=== PATIENT | female | born 1940 | race Caucasian/White ===

== ENCOUNTER 2023-08-02 02:51 | Inpatient (IN) | payer MEDICAID, MEDICARE ==
[~2023-08-02] VITALS: Ht 160 cm; Wt 80.0 kg
[~2023-08-02 02:51] MED LIST: ACHD5005 PO; ASP81CT PO; ASPI-1238 PO; CLCX200C PO; CLOP75TA PO; FLC150T PO; FRSM40T PO; HC A28.3 PR; HYDR-3583 PO; IBUP-30 PO; LISI2.5T56 PO; LISI5TAB PO; METO-333 PO; METO25TA PO; METO50TA7 PO; MTP50T PO; NITR0.3T6 SL; NYST1000 PO; OMEP20CA18 PO; ONDA8TAB13 PO; ONDA8TAB9 PO; POTA20TA15 PO; RNT150T PO; SIMV40TA2 PO; SIMV80TA3 PO; SUCR1ORA5 PO; WHEA1POW PO
[2023-08-02] MEDS ORDERED: fentaNYL INJECTION 100 MCG/2 ML VIAL IV ONE (02:54)
[2023-08-02] MEDS ORDERED: MIDAZOLAM INJ 5 MG/5 ML VIAL IJ ONE (02:54)
[2023-08-02] MEDS ORDERED: ETOMIDATE INJ SOLN 20 MG/10 ML VIAL IV ONE (02:54)
[2023-08-02] MEDS ORDERED: SUCCINYLCHOLINE INJ 20 MG/1 ML 10 ML VIAL INJ ONE (02:54)
--- NOTE | 2023-08-02 02:59 | ED Fall/Injury ---
General Stated Complaint: RECENT FALL,RT LEG SWELLING Source: patient (CJ RAYMOND MD) History of Present Illness Date Seen by Provider: Aug 02, 2023 Time Seen by Provider: 02:59 Initial Comments Patient is an 83yo female brought in by EMS from home with complaint of pain in right lg, hip, right arm. weakness. She is very dry, difficult to understand. Covered in bruises and with profound LE edema bilaterally with hemmorhagic bullae to right foot. erythema to right anterior lower leg. 3+ edema to bilateral legs. tachycardia. Initially hypotensive per EMS in the 70's - 90's here on arrival. Rdmg-rt-vylcjh O2 saturations - dusky fingers and feet. Ostomy present - leaking brown stool. HPI and ROS very difficult to obtain from patient as her oral mucosa is so dry she is very difficult to understand. Her biggest complaint is pain in her RLE. Occurred: last week Severity: severe Injuries/Pain Location: upper extremity, lower extremity Context: unknown (CJ RAYMOND MD) Allergies and Home Medications Allergies Coded Allergies: propoxyphene HCl (Unverified Allergy, Unknown, 03/30/11) Patient Home Medication List Home Medication List Reviewed: Yes (CJ RAYMOND MD) Aspirin (Aspirin EC) 81 Mg Tablet.dr, 81 MG PO HS, (Reported) Entered as Reported by: MONTSE ZHU on 02/11/16 1315 Hydrocodone Bit/Acetaminophen (Lortab 5 Mg Tablet) 1 Each Tablet, 1 EACH PO Q6H PRN for PAIN, (Reported) Entered as Reported by: HIEU RANGEL on 07/13/16 1517 Metoprolol Succinate (Metoprolol Succinate) 50 Mg Tab.er.24h, 50 MG PO DAILY, (Reported) Entered as Reported by: MONTSE ZHU on 02/11/16 1302 Omeprazole (Omeprazole) 20 Mg Capsule.dr, 20 MG PO BID, (Reported) Entered as Reported by: MONTSE ZHU on 02/11/16 1315 Ondansetron (Zofran Odt) 8 Mg Tab.rapdis, 8 MG PO Q8H PRN for NAUSEA/VOMITING, (Reported) Entered as Reported by: HIEU RANGEL on 07/13/16 1517 Review of Systems Review of Systems Constitutional: see HPI Musculoskeletal: joint pain, joint swelling, muscle pain (CJ RAYMOND MD) Past Phgkswr-Ikwggt-Criooj Hx Seasonal Allergies Seasonal Allergies: No (CJ RAYMOND MD) Past Medical History Bladder Surgery, Section, Hysterectomy, Tonsillectomy Hypertension Reproductive Disorders: No Female Reproductive Disorders: 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, 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 Sexually Transmitted Disease: No HIV/AIDS: No Kidney Infection, Bladder Infection, UTI-Chronic Hemorrhoids, C-Diff Osteoporosis, Arthritis Loss of Vision: Denies Hearing Impairment: Denies, Hard of Hearing (CJ RAYMOND MD) Family Medical History Arthritis 19 MOTHER G8 SISTER Cardiovascular disease 19 FATHER 19 MOTHER G8 BROTHER (ENLARGED HEART, PASSED 48 YOUNGER BROTHER HEART MURMUR) Diabetes mellitus 19 MOTHER G8 SISTER Hypertension 19 FATHER 19 MOTHER Myocardial infarction Heart Disease, Hypertension (CJ RAYMOND MD) Physical Exam Vital Signs Vital Signs - First Documented 08/02/23 08/02/23 02:51 06:49 Temp 36.0 Pulse 126 Resp 18 B/P (MAP) 91/62 (72) Pulse Ox 87 O2 Delivery Nasal Cannula O2 Flow Rate 4.00 FiO2 100 (PIERCE COLLIER MD) Vital Signs Capillary Refill : (CJ RAYMOND MD) Height, Weight, BMI Height: 5'0.00" Weight: 136lbs. 0.0oz. [id number]; 26.6 BMI Method:Stated General Appearance: obese, other (appears chronically ill) HEENT: other (very dry oral mucosa) Cardiovascular: tachycardia, irregularly irregular Respiratory: no respiratory distress, other (diminished throughout) Gastrointestinal: tenderness (diffuse tenderness; ostomy right lower quadrant - brown stool noted) Extremities: swelling (massive edema BLE; hemmorhagic bullae/erythema to RLE; cyanosis both feet; RUE wound to index finger of right hand with erythema and swelling. tenderness to palpation right proximal forearm with erythema and swelling.) Neurologic/Psychiatric: alert Skin: pallor, other (weeping bullae to the RLE) (CJ RAYMOND MD) [place] Coma Score Best Eye Response: (4) Open Spontaneously Best Verbal Response: (5) Oriented Best Motor Response: (6) Obeys Commands (CJ RAYMOND MD) Procedures/Interventions Lumen: triple Central Line Procedure: betadine prep, sterile drapes applied, sterile dressing applied Position: internal jugular (R) Anesthesia: Lidocaine Volume Anesthetic (ccs): 3 Complications: none Post Position: sutured, good blood return, position confirmed w/ CXR Central line does appear deep on postprocedure chest x-ray, it is a 16 cm line, patient is rotated which may affect interpretation of positioning (CJ RAYMOND MD) Date of ETT Placement: Aug 02, 2023 Time of ETT Placement: 06:33 Intubation Method: orotracheal Tube Size: 7.5 Medications: Etomidate, Succinylcholine Positive End Tide CO2: Yes Breath Sounds after Intubation: bilateral-equal Intubation Complications: no complications Post Intubation Xray: Yes (PIERCE COLLIER MD) Progress/Results/Core Measures Results/Orders Lab Results Laboratory Tests Test 08/02/23 03:15 08/02/23 03:30 08/02/23 04:07 08/02/23 06:19 Range/Units White Blood Count 6.5 4.3-11.0 10^3/uL Red Blood Count 5.01 3.80-5.11 10^6/uL Hemoglobin 12.8 11.5-16.0 g/dL Hematocrit 42 35-52 % Mean Corpuscular Volume 83 80-99 fL Mean Corpuscular Hemoglobin 26 25-34 pg Mean Corpuscular Hemoglobin Concent 31 L 32-36 g/dL Red Cell Distribution Width 15.6 H 10.0-14.5 % Platelet Count 189 130-400 10^3/uL Mean Platelet Volume 12.3 H 9.0-12.2 fL Immature Granulocyte % (Auto) 0 % Neutrophils (%) (Auto) 92 H 42-75 % Lymphocytes (%) (Auto) 3 L 12-44 % Monocytes (%) (Auto) 3 0-12 % Eosinophils (%) (Auto) 1 0-10 % Basophils (%) (Auto) 1 0-10 % Neutrophils # (Auto) 6.0 1.8-7.8 10^3/uL Lymphocytes # (Auto) 0.2 L 1.0-4.0 10^3/uL Monocytes # (Auto) 0.2 0.0-1.0 10^3/uL Eosinophils # (Auto) 0.0 0.0-0.3 10^3/uL Basophils # (Auto) 0.1 0.0-0.1 10^3/uL Immature Granulocyte # (Auto) 0.0 0.0-0.1 10^3/uL Neutrophils % (Manual) 32 % Lymphocytes % (Manual) 7 % Monocytes % (Manual) 4 % Eosinophils % (Manual) 1 % Metamyelocytes % 18 % Myelocytes % 2 % Band Neutrophils 36 % Nucleated Red Blood Cells 1 Polychromasia SLIGHT Poikilocytosis SLIGHT Anisocytosis SLIGHT [place] Cells MARKED Elliptocytes SLIGHT Acanthocytes SLIGHT Prothrombin Time 16.2 H 12.2-14.7 SEC INR Comment 1.2 0.8-1.4 Activated Partial Thromboplast Time 40 H 24-35 SEC Sodium Level 122 *L 135-145 MMOL/L Potassium Level 6.0 H 3.6-5.0 MMOL/L Chloride Level 91 L 98-107 MMOL/L Carbon Dioxide Level 22 21-32 MMOL/L Anion Gap 9 5-14 MMOL/L Blood Urea Nitrogen 34 H 7-18 MG/DL Creatinine 2.32 H 0.60-1.30 MG/DL Estimat Glomerular Filtration Rate 20 BUN/Creatinine Ratio 15 Glucose Level 63 L 70-105 MG/DL Lactic Acid Level 1.77 0.50-2.00 MMOL/L Calcium Level 8.2 L 8.5-10.1 MG/DL Corrected Calcium 9.2 8.5-10.1 MG/DL Total Bilirubin 1.1 H 0.1-1.0 MG/DL Aspartate Amino Transf (AST/SGOT) 39 H 5-34 U/L Alanine Aminotransferase (ALT/SGPT) 23 0-55 U/L Alkaline Phosphatase 63 40-136 U/L Total Creatine Kinase 233 H 29-168 U/L Total Protein 5.5 L 6.4-8.2 GM/DL Albumin 2.7 L 3.2-4.5 GM/DL Urine Color ORANGE Urine Clarity CLEAR Urine pH 5.5 5-9 Urine Specific [place] 1.025 H 1.016-1.022 Urine Protein 3+ H NEGATIVE Urine Glucose (UA) NEGATIVE NEGATIVE Urine Ketones TRACE H NEGATIVE Urine Nitrite NEGATIVE NEGATIVE Urine Bilirubin 2+ H NEGATIVE Urine Urobilinogen 1.0 < = 1.0 MG/DL Urine Leukocyte Esterase NEGATIVE NEGATIVE Urine RBC (Auto) NEGATIVE NEGATIVE Urine RBC NONE /HPF Urine WBC 0-2 /HPF Urine Squamous Epithelial Cells 2-5 /HPF Urine Crystals PRESENT H /LPF Urine Amorphous Sediment LARGE LUIGI URATES H /LPF Urine Bacteria FEW H /HPF Urine Casts PRESENT /LPF Urine Hyaline Casts 2-5 H /LPF Urine Granular Casts 0-2 H /LPF Urine Mucus NEGATIVE /LPF Urine Culture Indicated CULTURE PENDING Arterial Blood pH 7.24 *L 7.37-7.43 Arterial Blood Partial Pressure CO2 48 H 35-45 MMHG Arterial Blood Partial Pressure O2 112 H 79-93 MMHG Arterial Blood HCO3 21 L 23-27 MMOL/L Arterial Blood Total CO2 22.1 21.0-31.0 MMOL/L Arterial Blood Oxygen Saturation 100 94-100 % Arterial Blood Base Excess -6.9 L -2.5-2.5 MMOL/L Blood Gas Ventilator Setting NO Blood Gas Inspired Oxygen 5L Glucometer 98 70-110 MG/DL Test 08/02/23 07:04 08/02/23 07:42 08/02/23 09:49 08/02/23 10:48 Range/Units Arterial Blood pH 7.27 *L 7.37-7.43 Arterial Blood Partial Pressure CO2 42 35-45 MMHG Arterial Blood Partial Pressure O2 125 H 79-93 MMHG Arterial Blood HCO3 19 L 23-27 MMOL/L Arterial Blood Total CO2 20.6 L 21.0-31.0 MMOL/L Arterial Blood Oxygen Saturation 99 94-100 % Arterial Blood Base Excess -7.3 L -2.5-2.5 MMOL/L Blood Gas Ventilator Setting Blood Gas Inspired Oxygen Sodium Level 125 *L 135-145 MMOL/L Potassium Level 4.9 3.6-5.0 MMOL/L Chloride Level 96 L 98-107 MMOL/L Carbon Dioxide Level 19 L 21-32 MMOL/L Anion Gap 10 5-14 MMOL/L Blood Urea Nitrogen 31 H 7-18 MG/DL Creatinine 2.08 H 0.60-1.30 MG/DL Estimat Glomerular Filtration Rate 23 BUN/Creatinine Ratio 15 Glucose Level 93 70-105 MG/DL Calcium Level 7.2 L 8.5-10.1 MG/DL Glucometer 75 67 L 70-110 MG/DL Test 08/02/23 11:30 08/02/23 11:55 Range/Units Arterial Blood pH 7.13 *L 7.37-7.43 Arterial Blood Partial Pressure CO2 59 H 35-45 MMHG Arterial Blood Partial Pressure O2 47 L 79-93 MMHG Arterial Blood HCO3 20 L 23-27 MMOL/L Arterial Blood Total CO2 21.4 21.0-31.0 MMOL/L Arterial Blood Oxygen Saturation 73 L 94-100 % Arterial Blood Base Excess -10.1 L -2.5-2.5 MMOL/L Blood Gas Ventilator Setting Blood Gas Inspired Oxygen Hemoglobin 12.4 11.5-16.0 g/dL Hematocrit 41 35-52 % Sodium Level 125 *L 135-145 MMOL/L Potassium Level 4.9 3.6-5.0 MMOL/L Chloride Level 97 L 98-107 MMOL/L Carbon Dioxide Level 18 L 21-32 MMOL/L Anion Gap 10 5-14 MMOL/L Blood Urea Nitrogen 32 H 7-18 MG/DL Creatinine 2.07 H 0.60-1.30 MG/DL Estimat Glomerular Filtration Rate 23 BUN/Creatinine Ratio 15 Glucose Level 155 H 70-105 MG/DL Calcium Level 6.9 L 8.5-10.1 MG/DL Troponin I 0.041 H <0.028 NG/ML Thyroid Stimulating Hormone (TSH) 4.45 0.35-4.94 UIU/ML (PIERCE COLLIER MD) My Orders Orders - PIERCE COLLIER MD Chest 1 View, Ap/Pa Only (08/02/23 ) Arterial Blood Draw - Obtain (08/02/23 07:05) Arterial Blood Gas (08/02/23 07:05) Arterial Blood Draw - Obtain (08/02/23 ) Fentanyl Drip Pre-Mix (Fentanyl Drip Pre (08/02/23 07:30) Midazolam Drip Pre-Mix (Midazolam Drip P (08/02/23 07:30) Basic Metabolic Panel (08/02/23 07:25) Midazolam Injection (Midazolam Injection (08/02/23 07:30) Fentanyl Injection (Fentanyl Injection (08/02/23 07:25) Midazolam Injection (Midazolam Injection (08/02/23 07:26) Fentanyl Injection (Fentanyl Injection (08/02/23 07:26) Consent-Obtain Consent For (08/02/23 06:30) Consent-Obtain Consent For (08/02/23 05:20) Og Tube Insertion (08/02/23 08:04) Midazolam Injection (Midazolam Injection (08/02/23 10:15) Fentanyl Injection (Fentanyl Injection (08/02/23 10:15) Ns Iv 1000 Ml (Ns Iv 1000 Ml) (08/02/23 10:15) Midazolam Injection (Midazolam Injection (08/02/23 10:03) Fentanyl Injection (Fentanyl Injection (08/02/23 10:03) Etomidate Injection (Etomidate Injection (08/02/23 02:54) Fentanyl Injection (Fentanyl Injection (08/02/23 02:54) Midazolam Injection (Midazolam Injection (08/02/23 02:54) Succinylcholine Injection (Succinylcholi (08/02/23 02:54) D5 Ns 1,000 Ml Iv Soln (Dextrose 5%/0.9 (08/02/23 11:00) D5 Ns 1,000 Ml Iv Soln (Dextrose 5%/0.9 (08/02/23 10:50) Vancomycin Injection (Vancomycin Injecti (08/02/23 11:15) Piperacillin/Tazobactam (Piperacillin/Ta (08/02/23 11:15) Vancomycin 1500mg/300ml Premix (Vancomyc (08/02/23 11:30) Arterial Blood Gas (08/02/23 11:33) Arterial Blood Draw - Obtain (08/02/23 11:33) Arterial Blood Draw - Obtain (08/02/23 ) Basic Metabolic Panel (08/02/23 11:53) Hemoglobin And Hematocrit (08/02/23 11:53) Code/Resuscitation (08/02/23 12:05) (PIERCE COLLIER MD) Medications Given in ED Current Medications Medications Dose Ordered Sig/Daniella Route Start Time Stop Time Status Last Admin Dose Admin Dextrose 50 ml ONCE ONCE IV 08/02/23 04:30 08/02/23 04:33 DC 08/02/23 05:48 50 ML Diltiazem HCl 10 mg ONCE ONCE IVP 08/02/23 06:15 08/02/23 06:16 DC 08/02/23 06:27 10 MG Fentanyl Citrate 50 mcg ONCE ONCE IVP 08/02/23 10:15 08/02/23 10:16 DC 08/02/23 10:07 50 MCG Insulin Human Regular 10 unit ONCE ONCE IV 08/02/23 04:30 08/02/23 04:33 DC 08/02/23 05:48 10 UNIT Midazolam HCl 5 mg ONCE ONCE IVP 08/02/23 07:30 08/02/23 07:31 DC 08/02/23 07:29 5 MG Midazolam HCl 5 mg ONCE ONCE IVP 08/02/23 10:15 08/02/23 10:16 DC 08/02/23 10:07 5 MG Piperacillin Sod/ Tazobactam Sod 4.5 gm/Sodium Chloride 100 ml @ 200 mls/hr ONCE ONCE IV 08/02/23 04:45 08/02/23 05:14 DC 08/02/23 06:06 200 MLS/HR Piperacillin Sod/ Tazobactam Sod 4.5 gm/Sodium Chloride 100 ml @ 200 mls/hr ONCE ONCE IV 08/02/23 11:15 08/02/23 11:44 DC 08/02/23 11:40 200 MLS/HR Sodium Bicarbonate 50 meq ONCE ONCE IV 08/02/23 04:30 08/02/23 04:33 DC 08/02/23 05:49 50 MEQ Sodium Chloride 1,000 ml @ 250 mls/hr Q4H ONCE IV 08/02/23 10:15 08/02/23 14:14 08/02/23 10:17 250 MLS/HR Sodium Chloride 1,000 ml @ ud STK-MED ONCE .ROUTE 08/02/23 06:25 08/02/23 06:27 DC 08/02/23 06:28 999 MLS/HR Vancomycin/PEG/ NADA/Lysine/Water 300 ml @ 200 mls/hr ONCE ONCE IV 08/02/23 11:30 08/02/23 12:59 DC 08/02/23 12:04 200 MLS/HR (PIERCE COLLIER MD) Vital Signs/I&O 08/02/23 08/02/23 08/02/23 08/02/23 02:51 02:55 06:01 06:27 Temp 36.0 Pulse 126 180 171 Resp 18 B/P (MAP) 91/62 (72) Pulse Ox 87 O2 Delivery Nasal Cannula Nasal Cannula O2 Flow Rate 4.00 4.00 08/02/23 08/02/23 08/02/23 08/02/23 06:27 06:49 09:33 10:18 Pulse 171 133 85 Resp 14 14 13 B/P (MAP) 110/26 Pulse Ox 100 FiO2 100 70 08/02/23 10:19 Pulse 78 B/P (MAP) 110/26 (PIERCE COLLIER MD) Progress Progress Note : Time: 06:17 Progress Note Patient seen and evaluated by me, evaluation today includes history and physical exam, "sepsis work-up" to include CBC, Chem-12, coags, blood cultures, UA and urine culture, total CK, single view chest x-ray, lactic acid, EKG, x-rays of the right forearm, pelvis. Pertinent physical exam findings elderly female who appears chronically ill, hypoxic, hypotensive and tachycardic. Afebrile. Very dry oral mucosa, skin pallor, poor turgor. Heart is irregularly irregular. Lung sounds diminished throughout. Abdomen diffusely tender, colostomy present. Significant pitting edema to the bilateral lower extremities with hemorrhagic erythematous bullae over the right lower leg. Dusky cyanotic feet cool to the touch. Right upper extremity is tender to touch over the wrist. No deformity is observed. 1+ radial pulses bilaterally Differential diagnosis includes sepsis due to pneumonia, urinary tract infection, bacteremia, fractures of the pelvis, right forearm fracture, acute renal failure/dehydration Labs, EKG and imaging independently reviewed and interpreted by me. (CJ RAYMOND MD) Progress Note : Progress Note 0615: I have assumed care of the patient pending admission to the ICU. She is excepted by the eICU team as well as by Dr. Cross. Both have been called and have accepted the patient with Dr. Cross, primary and eICU on consult. These calls were made by Dr. Raymond. We are awaiting ICU bed. 0645: Patient had increasing difficulty with with blood pressure and patient is on Levophed and that was titrated up to 0.6 mcg/kg/min and we were able to achieve reasonable blood pressure in the 120s to 130s. Heart rate remained 140s or higher and we are going to initiate Cardizem but O2 saturations are noted to be at 80%. We have elected to intubate the patient due to hypoxia and need for airway control in the setting of severe disease including A-fib RVR and hypotension. Patient intubated as per progress note. Postintubation chest x-ray shows all lines and tubes in good position on my interpretation. We have initiated Cardizem drip at 10 mg/h after 10 mg bolus. 0653: We have increased Cardizem to 15 mg/h and heart rate is currently 120s with blood pressure 140/49 with O2 sat of 100%. We have set the ventilator at rate of 14 with tidal volume of 450 and PEEP of 8 and there titrating FiO2. We are pending ICU bed. Monitor patient. Daughter informed. 1205: This has been a very complicated morning and we have made multiple adjustments to vent and with other medications. I have recently talked with the eICU team and we discussed recent ABG which showed pH of 7.13 and pCO2 in the 50s with pO2 in the 40s. We adjusted vent to tidal volume of 450 with rate of 20 and PEEP of 10 at 100% and we do have improvement in O2 sat. End- tidal CO2 monitor was showing low and we will reevaluate to ensure that we are getting appropriate readings although patient may not be displacing CO2 due to the long involvement. She has still had scant urine output. I did speak with the pharmacist, Dr. Jhon Hess. We have initiated second dose of Zosyn 4.5 g IV and will initiate vancomycin weight-based dosing. We have adjusted the Levophed up to 0.7 mcg/kg/min to keep blood pressure greater than 90 systolic and MAP greater than 65. Currently blood pressure is 117/60 with heart rate of 80. We have titrated the Cardizem drip down to 15 and anticipate decreasing that as her heart rate has improved to the 70s and 80s. She is on fentanyl and Versed drip to maintain sedation and she has had push doses of fentanyl 50 mcg IV and Versed 5 mg IV for sedation. Palliative care has spoken with the africa arias's family and also with me. I did just finished conversation with patient's daughter about the critical nature of the patient and about resuscitation status. Ultimately the daughter has decided to change status to no compressions. Patient is intubated so obviously we will continue with the intubation at this point and continue critical medical management as we have so far. We did initiate D5 normal saline to run at 125 an hour for declining blood sugars and patient does have background normal saline running at 250 an hour for right now to also assist with blood pressures. I did discuss findings and current situation as well as changing CODE STATUS with the admitting physician, Dr. Cross and I have placed orders for no compressions. We are still awaiting ICU bed. Monitor patient. 1306: H&H reviewed and hemoglobin is stable. BMP reviewed and sodium is still low with remaining normal potassium and creatinine is unchanged. Glucose has increased after the addition of D5 NS. Patient will go to ICU. She will get CT scans that are ordered and route to the ICU with ICU team to follow. Blood pressure currently 106/84 with heart rate of 82 and O2 sat 99% on previous vent settings with respiratory rate of 20. Patient to ICU with nursing team. eICU updated. (PIERCE COLLIER MD) Initial ECG Impression Date: Aug 02, 2023 Initial ECG Impression Time: 04:34 Initial ECG Rate: 131 Initial ECG Rhythm: A Fib/Flutter Initial ECG Impression: Atrial Fibrillation w/RVR (CJ RAYMOND MD) Diagnostic Imaging Diagonstic Imaging: Xray Plain Films/CT/US/NM/MRI: chest Comments Single view chest x-ray independently reviewed and interpreted by me, large right-sided pleural effusion Diagonstic Imaging: Xray Plain Films/CT/US/NM/MRI: chest Comments Post right IJ central line single view chest x-ray independently reviewed and interpreted by me -line appears deep however patient is rotated in positioning on the film, this is a 16 cm line, no pneumothorax is observed Diagonstic Imaging: Xray Comments right forearm - independently reviewed and interpreted by me - no fracture Diagonstic Imaging: Xray Comments pelvis xray - independently reviewed and interpreted by me - questionable right femoral neck fracture - otherwise no abnormality (CJ RAYMOND MD) Diagonstic Imaging: Xray Plain Films/CT/US/NM/MRI: chest Comments [facility], [facility]. [place], [place] NAME: ANUPAM INCHOLS I MED REC#: [id number] PT STATUS: REG ER : 1940 PHYSICIAN: PIERCE COLLIER MD ADMIT DATE: 08/02/23/ER Signed Date of Exam:08/02/23 CHEST 1 VIEW, AP/PA ONLY EXAM: CHEST 1 VIEW, AP/PA ONLY INDICATION: Line placement. COMPARISON: 08/02/2023. FINDINGS: ETT tip approximately 3 cm from the jelani. NG tube tip and side-port in stomach. Right IJ CVC tip low SVC. Large right pleural effusion. Cardiomegaly with pulmonary vascular congestion. Left lung is clear. No pneumothorax. IMPRESSION: New ETT and NGT in the expected positions. Remainder stable. Dictated by: Dictated on workstation # [id number] Dict: 08/02/23 0653 Trans: 08/02/2346 [facility] [id number] Interpreted by: MIRACLE LOUIS MD Electronically signed by: MIRACLE LOUIS MD 08/02/23945 (PIERCE COLLIER MD) Focused Exam Sepsis Stage: Septic Shock (CJ RAYMOND MD) Lactate Level 08/02/23 03:15: Lactic Acid Level 1.77 (PIERCE COLLIER MD) Time of Focused Exam: 05:30 Respiratory: No Accessory Muscle Use, Other (diminshed throughout) Cardiovascular: Irregularly Irregular, Tachycardia Capillary Refill: Greater Than 3 Seconds Peripheral Pulses: 1+ Radial Pulses (R), 1+ Radial Pulses (L) Skin: cyanosis (CJ RAYMOND MD) Lactic Acid Level Laboratory Tests Test 08/02/23 03:15 Lactic Acid Level 1.77 MMOL/L (0.50-2.00) (PIERCE COLLIER MD) Within 3hrs of presentation: Admin fluids, Admin 30ml/kg IBW due to BMI>30, Admin ABX, Blood cultures prior to ABX's, Focus exam, Lactate level (CJ RAYMOND MD) Critical Care Note Critical Care Start Time: 03:00 Stop Time: 06:00 Total Time (minutes) 1 hr critical care time in the evaluation and treatment of this critically ill patient. Time includes history from daughter; fluid resuscitation; potassium correction, pressor support, IV medication/drip for Afib with RVR; review of medical records; discussion with eICU and Hospitalist (CJ RAYMOND MD) Departure Communication (Admissions) Time/Spoke to Admitting Phy: 06:[address] Davis (eICU) Time/Spoke to Consulting Phy: 06:[address] Cross ([facility] Hospitalist) (CJ RAYMOND MD) Impression Primary Impression: Cellulitis Qualified Codes: L03.115 - Cellulitis of right lower limb Additional Impressions: Renal failure Qualified Codes: N19 - Unspecified kidney failure Hyperkalemia Pleural effusion Atrial fibrillation with RVR Septic shock Disposition: ADMITTED INPATIENT Condition: Critical Admissions Decision to Admit Reason: Admit from ER (General) Decision to Admit/Date: Aug 02, 2023 Time/Decision to Admit Time: 06:00 (CJ RAYMOND MD) Departure-Patient Inst. Referrals: [facility]/K (PCP/Family) Primary Care Physician Copy Copies To 1: ARNULFO WAITE KATHRYN M MD Aug 02, 2023 02:59 PIERCE COLLIER MD Aug 02, 2023 07:01
[2023-08-02] MEDS ORDERED: NS IV 1000 ML 1,000 ML IV STA (03:07)
[2023-08-02] MEDS ORDERED: LIDOCAINE UROJET 2% GEL 10 ML PKG TOP ONE (03:15)
[2023-08-02 03:33] LABS: BASOPHILS # (AUTO) 0.1 10^3/uL (0.0-0.1); BASOPHILS % (AUTO) 1 % (0-10); EOSINOPHILS % (AUTO) 1 % (0-10); HEMATOCRIT 42 % (35-52); HEMOGLOBIN 12.8 g/dL (11.5-16.0); LYMPHOCYTES # (AUTO) 0.2 10^3/uL (1.0-4.0); LYMPHOCYTES % (AUTO) 3 % (12-44); MEAN CORPUSCULAR HEMOGLOBIN 26 pg (25-34); MEAN CORPUSCULAR HGB CONC 31 g/dL (32-36); MEAN CORPUSCULAR VOLUME 83 fL (80-99); MEAN PLATELET VOLUME 12.3 fL (9.0-12.2); MONOCYTES # (AUTO) 0.2 10^3/uL (0.0-1.0); MONOCYTES % (AUTO) 3 % (0-12); NEUTROPHILS % (AUTO) 92 % (42-75); PLATELET COUNT 189 10^3/uL (130-400); WHITE BLOOD COUNT 6.5 10^3/uL (4.3-11.0)
[2023-08-02 03:44] LABS: ALBUMIN 2.7 GM/DL (3.2-4.5)
[2023-08-02 03:45] LABS: CALCIUM 8.2 MG/DL (8.5-10.1)
[2023-08-02 03:46] LABS: INR 1.2 (0.8-1.4); PROTHROMBIN TIME PATIENT 16.2 SEC (12.2-14.7)
[2023-08-02 03:47] LABS: TOTAL PROTEIN 5.5 GM/DL (6.4-8.2)
[2023-08-02 03:48] LABS: BILIRUBIN,TOTAL 1.1 MG/DL (0.1-1.0)
[2023-08-02 03:50] LABS: CREATININE SERUM 2.32 MG/DL (0.60-1.30)
[2023-08-02 04:12] LABS: ABG BASE EXCESS -6.9 MMOL/L (-2.5-2.5); ABG OXYGEN SATURATION 100 % (94-100); ABG PCO2 48 MMHG (35-45); ABG PO2 112 MMHG (79-93); ABG TCO2 22.1 MMOL/L (21.0-31.0)
[2023-08-02 04:17] LABS: ABG PH 7.24 (7.37-7.43); INSPIRED O2 5L; VENTILATOR NO
[2023-08-02] MEDS ORDERED: SODIUM BICARB 8.4% 50 MEQ/50 ML (ABBOTT) SYR IV ONE (04:30)
[2023-08-02] MEDS ORDERED: SODIUM POLYSTYRENE POWDER 15 GM BOTTLE PO ONE (04:30)
[2023-08-02] MEDS ORDERED: inSUlin (REGULAR) HUMAN 1 UNIT/0.01 ML (CHARGE PER UNIT) IV ONE (04:30)
[2023-08-02] MEDS ORDERED: DEXTROSE 50% 50 ML (IMS) SYR IV ONE ×2 (04:30→23:45)
[2023-08-02 04:31] LABS: CLARITY,URINE CLEAR; COLOR,URINE ORANGE; GLUCOSE, URINE (UA) NEGATIVE (NEGATIVE); KETONES,URINE TRACE (NEGATIVE); NITRITE,URINE NEGATIVE (NEGATIVE); PH,URINE 5.5 (5-9); PROTEIN,URINE 3+ (NEGATIVE)
[2023-08-02 04:32] LABS: AMORPHOUS SEDIMENT,UR LARGE AMOR URATES /LPF; BACTERIA,URINE FEW /HPF; BILIRUBIN,URINE 2+ (NEGATIVE); GRANULAR CASTS,URINE 0-2 /LPF; LEUKOCYTE ESTERASE ,URINE NEGATIVE (NEGATIVE); WBC,URINE 0-2 /HPF
[2023-08-02] MEDS ORDERED: PIPERACILLIN/Tazobactam 4.5 GM in NS (IVPB) 100 ML 100 ML IV ONE ×2 (04:45→11:15)
[2023-08-02 05:32] LABS: ANISOCYTOSIS SLIGHT; BAND NEUTROPHILS 36 %; EOSINOPHILS % (MANUAL) 1 %; LYMPHOCYTES % (MANUAL) 7 %; METAMYELOCYTES % 18 %; MONOCYTES % (MANUAL) 4 %; MYELOCYTES % 2 %; NEUTROPHILS % (MANUAL) 32 %; NUCLEATED RED BLOOD CELLS 1; POIKILOCYTOSIS SLIGHT; POLYCHROMASIA SLIGHT
[2023-08-02 05:33] LABS: ACANTHOCYTES SLIGHT; BURR CELLS MARKED; ELLIPT/OVALOCYTES SLIGHT
[2023-08-02] MEDS ORDERED: NOREPINEPHRINE 8 MG/250 ML 250 ML IV SCH (06:00)
[2023-08-02] MEDS ORDERED: dilTIAZem INJ 25 MG/5 ML VIAL IVP ONE (06:15)
--- NOTE | 2023-08-02 06:22 | Diagnostic Imaging Report ---
EXAM: CHEST 1 VIEW, AP/PA ONLY INDICATION: Central line placement. COMPARISON: 08/02/2023. FINDINGS: New right IJ CVC tip lower SVC. Persistent dense consolidation in the right lung base. Cardiomegaly. Prominent pulmonary vascularity. Large right pleural effusion. No pneumothorax. IMPRESSION: 1. New right IJ CVC tip lower SVC. 2. Remainder stable including cardiomegaly, large right pleural effusion and pulmonary vascular congestion. Dictated by: Dictated on workstation # [id number]
--- NOTE | 2023-08-02 06:23 | Diagnostic Imaging Report ---
EXAM: CHEST 1 VIEW, AP/PA ONLY INDICATION: Weakness. Hypotension. Trauma. Fall. COMPARISON: 02/13/2016. FINDINGS: Cardiomegaly with increased pulmonary vascularity. Large right pleural effusion and consolidation in the right lung base. No pneumothorax. No acute osseous findings. IMPRESSION: Cardiomegaly with increased pulmonary vascular congestion and large right pleural effusion. Dictated by: Dictated on workstation # [id number]
[2023-08-02] MEDS ORDERED: NS IV 1000 ML 1,000 ML ONE (06:25)
--- NOTE | 2023-08-02 06:25 | Diagnostic Imaging Report ---
EXAM: FOREARM, RIGHT, 2 VIEWS INDICATION: Trauma. Right arm pain. Fall. COMPARISON: None. FINDINGS: No fracture or malalignment. Ilmjpyji-[id number] degenerative changes in the right wrist. Soft tissue shadows are unremarkable. IMPRESSION: No acute radiographic findings in the right forearm. Dictated by: Dictated on workstation # [id number]
[2023-08-02] MEDS: dilTIAZem DRIP PRE-MIX 125 ML IV SCH (06:27)
--- NOTE | 2023-08-02 06:45 | Diagnostic Imaging Report ---
EXAM: PELVIS 1 TO 2 VIEWS INDICATION: Trauma. Weakness. Fall. COMPARISON: CT abdomen and pelvis 02/21/2016. FINDINGS: No fracture or malalignment. Soft tissue shadows are unremarkable. IMPRESSION: Negative single view of the pelvis. Dictated by: Dictated on workstation # [id number]
[2023-08-02 06:49] VITALS: BP 142/85
--- NOTE | 2023-08-02 06:55 | Diagnostic Imaging Report ---
EXAM: CHEST 1 VIEW, AP/PA ONLY INDICATION: Line placement. COMPARISON: 08/02/2023. FINDINGS: ETT tip approximately 3 cm from the jelani. NG tube tip and side-port in stomach. Right IJ CVC tip low SVC. Large right pleural effusion. Cardiomegaly with pulmonary vascular congestion. Left lung is clear. No pneumothorax. IMPRESSION: New ETT and NGT in the expected positions. Remainder stable. Dictated by: Dictated on workstation # [id number]
[2023-08-02 07:15] LABS: ABG BASE EXCESS -7.3 MMOL/L (-2.5-2.5); ABG OXYGEN SATURATION 99 % (94-100); ABG PCO2 42 MMHG (35-45); ABG PO2 125 MMHG (79-93); ABG TCO2 20.6 MMOL/L (21.0-31.0)
[2023-08-02 07:16] LABS: ABG PH 7.27 (7.37-7.43)
[2023-08-02] MEDS ORDERED: fentaNYL INJECTION 100 MCG/2 ML VIAL IVP STA (07:25)
[2023-08-02] MEDS ORDERED: fentaNYL INJECTION 100 MCG/2 ML VIAL ONE ×2 (07:26→10:03)
[2023-08-02] MEDS ORDERED: MIDAZOLAM INJ 5 MG/5 ML VIAL ONE ×2 (07:26→10:03)
[2023-08-02] MEDS ORDERED: MIDAZOLAM DRIP PRE-MIX 100 ML IV SCH (07:30)
[2023-08-02] MEDS ORDERED: MIDAZOLAM INJ 5 MG/5 ML VIAL IVP ONE ×2 (07:30→10:15)
[2023-08-02 08:00] LABS: POTASSIUM 4.9 MMOL/L (3.6-5.0)
[2023-08-02 08:02] LABS: CALCIUM 7.2 MG/DL (8.5-10.1)
[2023-08-02 08:06] LABS: CREATININE SERUM 2.08 MG/DL (0.60-1.30)
[2023-08-02 09:33] VITALS: BP 91/36
[2023-08-02] MEDS ORDERED: fentaNYL INJECTION 100 MCG/2 ML VIAL IVP ONE (10:15)
[2023-08-02] MEDS ORDERED: NS IV 1000 ML 1,000 ML IV ONE (10:15)
[2023-08-02] MEDS: fentaNYL DRIP PRE-MIX 250 ML IV SCH ×2 (10:19→14:48)
[2023-08-02] MEDS ORDERED: D5 NS 1,000 ML IV SOLN 1,000 ML IV ONE (10:50)
[2023-08-02] MEDS: D5 NS 1,000 ML IV SOLN 1,000 ML IV SCH ×2 (10:55→18:43)
--- NOTE | 2023-08-02 11:02 | History & Physical ---
MEENU CASTILLO MD, RESIDENT 08/02/23 1101: HPI History of Present Illness: CC: Right lower extremity pain Patient is an 83-year-old female with a past medical history of hypertension, hernia pair with bowel resection with colostomy in place, CAD with stent in the LAD who presented initially with right lower extremity pain. Patient currently intubated and unable to provide any history however obtained history from daughter at bedside. Daughter states that patient had fallen at home a couple days ago when getting up to go to the bathroom. She had recommended that patient go to the hospital for evaluation however patient declined. Daughter did note that patient was having some lower extremity swelling bilaterally over the next couple days. Then last night, patient was having severe pain in her right lower extremity and thus was transported via EMS to the hospital. On presentation to the ED, patient was noted to have significant bilateral lower extremity edema and signs of cellulitis on her right lower extremity. She was noted to be in septic shock due to her tachycardia and hypotension. She was also noted to be in atrial fibrillation with RVR. Patient continued to decline while in the ED requiring central line placement. She is currently on Levophed and a diltiazem drip. She did have worsening respiratory status thus requiring intubation. Patient will be admitted to the ICU for further management. Per daughter at bedside, patient does not take any medications at home other than blood pressure medications and aspirin occasionally. Denies any smoking, alcohol or drug use. Source: family, RN/MD Exam Limitations: clinical condition Date seen by provider: Aug 02, 2023 Time Seen by Provider: 07:30 Attending Physician [place] PCP Admitting Physician: Attending Physician: Consult Date of Admission Home Medications Home Medications Reviewed patient Home Medication Reconciliation performed by pharmacy medication reconciliations layout technician and/or nursing. Patients Allergies have been reviewed. Allergies Coded Allergies: propoxyphene HCl (Unverified Allergy, Unknown, 03/30/11) PGF-Onksdr-Mwhipy Hx Patient Social History Recent Hopitalizations: No Alcohol Use?: No Immunizations Up To Date Influenza Vaccine Up-to-Date: No; Not Current Past Medical History PMHx: HTN HLD CAD s/p stenting PSurgHx: Colectomy, ileostomy for perforated bowel Family Medical History Significant Family History: Heart Disease, Hypertension Family History: Arthritis 19 MOTHER G8 SISTER Cardiovascular disease 19 FATHER 19 MOTHER G8 BROTHER (ENLARGED HEART, PASSED 48 YOUNGER BROTHER HEART MURMUR) Diabetes mellitus 19 MOTHER G8 SISTER Hypertension 19 FATHER 19 MOTHER Myocardial infarction Review of Systems ([facility]) Constitutional: No no symptoms reported Other Unable to complete as patient is intubated Reviewed Test Results Reviewed Test Results Lab Laboratory Tests 08/02/23 03:15: White Blood Count 6.5, Red Blood Count 5.01, Hemoglobin 12.8, Hematocrit 42, Mean Corpuscular Volume 83, Mean Corpuscular Hemoglobin 26, Mean Corpuscular Hemoglobin Concent 31L, Red Cell Distribution Width 15.6H, Platelet Count 189, Mean Platelet Volume 12.3H, Immature Granulocyte % (Auto) 0, Neutrophils (%) (Auto) 92H, Lymphocytes (%) (Auto) 3L, Monocytes (%) (Auto) 3, Eosinophils (%) (Auto) 1, Basophils (%) (Auto) 1, Neutrophils # (Auto) 6.0, Lymphocytes # (Auto) 0.2L, Monocytes # (Auto) 0.2, Eosinophils # (Auto) 0.0, Basophils # (Auto) 0.1, Immature Granulocyte # (Auto) 0.0, Neutrophils % (Manual) 32, Lymphocytes % (Manual) 7, Monocytes % (Manual) 4, Eosinophils % (Manual) 1, Metamyelocytes % 18, Myelocytes % 2, Band Neutrophils 36, Nucleated Red Blood Cells 1, Polychromasia SLIGHT, Poikilocytosis SLIGHT, Anisocytosis SLIGHT, Bo Cells MARKED, Elliptocytes SLIGHT, Acanthocytes SLIGHT, Prothrombin Time 16.2H, INR Comment 1.2, Activated Partial Thromboplast Time 40H, Sodium Level 122*L, Potassium Level 6.0H, Chloride Level 91L, Carbon Dioxide Level 22, Anion Gap 9, Blood Urea Nitrogen 34H, Creatinine 2.32H, Estimat Glomerular Filtration Rate 20, BUN/Creatinine Ratio 15, Glucose Level 63L, Lactic Acid Level 1.77, Calcium Level 8.2L, Corrected Calcium 9.2, Total Bilirubin 1.1H, Aspartate Amino Transf (AST/SGOT) 39H, Alanine Aminotransferase (ALT/SGPT) 23, Alkaline Phosphatase 63, Total Creatine Kinase 233H, Total Protein 5.5L, Albumin 2.7L 08/02/23 03:30: Urine Color ORANGE, Urine Clarity CLEAR, Urine pH 5.5, Urine Specific Eastern 1.025H, Urine Protein 3+H, Urine Glucose (UA) NEGATIVE, Urine Ketones TRACEH, Urine Nitrite NEGATIVE, Urine Bilirubin 2+H, Urine Urobilinogen 1.0, Urine Leukocyte Esterase NEGATIVE, Urine RBC (Auto) NEGATIVE, Urine RBC NONE, Urine WBC 0-2, Urine Squamous Epithelial Cells 2-5, Urine Crystals PRESENTH, Urine Amorphous Sediment LARGE LUIGI URATESH, Urine Bacteria FEWH, Urine Casts PRESENT, Urine Hyaline Casts 2-5H, Urine Granular Casts 0-2H, Urine Mucus NEGATIVE, Urine Culture Indicated CULTURE PENDING 08/02/23 04:07: Arterial Blood pH 7.24*L, Arterial Blood Partial Pressure CO2 48H, Arterial Blood Partial Pressure O2 112H, Arterial Blood HCO3 21L, Arterial Blood Total CO2 22.1, Arterial Blood Oxygen Saturation 100, Arterial Blood Base Excess -6.9L , Blood Gas Ventilator Setting NO, Blood Gas Inspired Oxygen 5L 08/02/23 06:19: Glucometer 98 08/02/23 07:04: Arterial Blood pH 7.27*L, Arterial Blood Partial Pressure CO2 42, Arterial Blood Partial Pressure O2 125H, Arterial Blood HCO3 19L, Arterial Blood Total CO2 20.6L, Arterial Blood Oxygen Saturation 99, Arterial Blood Base Excess -7.3L, Blood Gas Ventilator Setting , Blood Gas Inspired Oxygen 08/02/23 07:42: Sodium Level 125*L, Potassium Level 4.9, Chloride Level 96L, Carbon Dioxide Level 19L, Anion Gap 10, Blood Urea Nitrogen 31H, Creatinine 2.08H, Estimat Glomerular Filtration Rate 23, BUN/Creatinine Ratio 15, Glucose Level 93, Calcium Level 7.2L 08/02/23 09:49: Glucometer 75 08/02/23 10:48: Glucometer 67L Radiology Chest x-ray (08/02/2023): IMPRESSION: Cardiomegaly with increased pulmonary vascular congestion and large right pleural effusion. Forearm x-ray (08/02/2023): IMPRESSION: No acute radiographic findings in the right forearm. Pelvis x-ray (08/02/2023): IMPRESSION: Negative single view of the pelvis. Physical Exam-([facility]) Physical Exam Vital Signs VS - Last 72 Hours, by Label 08/02/23 08/02/23 08/02/23 08/02/23 02:51 02:55 06:01 06:27 Temp 36.0 Pulse 126 180 171 Resp 18 B/P (MAP) 91/62 (72) Pulse Ox 87 O2 Delivery Nasal Cannula Nasal Cannula O2 Flow Rate 4.00 4.00 08/02/23 08/02/23 08/02/23 08/02/23 06:27 06:49 09:33 10:18 Pulse 171 133 85 Resp 14 14 13 B/P (MAP) 110/26 Pulse Ox 100 FiO2 100 70 08/02/23 10:19 Pulse 78 B/P (MAP) 110/26 Capillary Refill : Greater Than 3 Seconds General Appearance: moderate distress HEENT: other (Endotracheal tube in place) Neck: supple Respiratory: chest non-tender, lungs clear, normal breath sounds, no respiratory distress, no accessory muscle use Cardiovascular: no murmur, tachycardia, irregularly irregular, other (Significant bilateral lower extremity edema, 3+ up to the thighs) Gastrointestinal: normal bowel sounds, non tender, soft, other (Colostomy in right lower quadrant draining stool) Neurologic/Psychiatric: other (Sedated) Skin: mottled, other (Noting purple coloring on toes bilaterally, large ecchymosis on right lower extremity over diamond, mildly fluctuant to palpation, warm to touch) Assessment/Plan Assessment/Plan Admission Dx Cellulitis, acute renal failure, atrial fibrillation with RVR, septic shock Admission Status: Inpatient Order (span 2 midnights) Reason for Inpatient Admission: Septic shock requiring intubation and pressors (1) Septic shock Status: Acute Assessment & Plan: Unclear source of infection at this time however presumed to be right lower extremity cellulitis. UA mildly positive for few bacteria however not overtly diagnostic for UTI. Chest x-ray negative for any pneumonia. Cellulitis noted on right lower extremity. Plan: Continue Vanco and Zosyn for cellulitis treatment Follow-up blood cultures Follow-up urine culture Patient does have signs of endorgan damage with hypotension, maintained with Levophed drip Central line in place CT chest/abdomen/pelvis ordered, will follow-up Had conversation with daughter at bedside, prognosis is guarded but did explain that patient is very sick and requires medication and machines to support her body at this time. We will consult palliative care to assist with discussions. Patient is full code for now. (2) Acute hypercapnic respiratory failure Status: Acute Assessment & Plan: Patient noted to be in acute hypercapnic respiratory failure as noted on ABG requiring intubation. Plan: Vent settings per eICU Daily ABG Sedation as needed while intubated (3) Hypotension Status: Acute Assessment & Plan: Significant hypotension noted in the ED requiring Levophed drip. Likely secondary to septic shock and dehydration. Plan: IV fluids Continue Levophed, titrate as needed Qualifiers: Qualified Codes: I95.89 - Other hypotension (4) Atrial fibrillation with RVR Status: Acute Assessment & Plan: Patient noted to be in atrial fibrillation with RVR down in the emergency department. Started on diltiazem drip. Does not have a history of A-fib per daughter at bedside. Not on any blood thinners. Plan: Continue diet diltiazem drip Consulted cardiology, appreciate recommendations (5) Cellulitis Status: Acute Assessment & Plan: Noted to have right lower extremity cellulitis. WBC within normal range however patient is septic. Plan: Continue IV Vanco and Zosyn as noted above Monitor daily CBC Qualifiers: Qualified Codes: L03.115 - Cellulitis of right lower limb (6) Renal failure Status: Acute Assessment & Plan: Patient noted to be in renal failure with a creatinine of 2.32. Thought to be secondary to dehydration given that specific gravity on UA was also elevated. Plan: Continue IV fluids as per above. Qualifiers: Qualified Codes: N19 - Unspecified kidney failure (7) Bilateral lower extremity edema Status: Acute Assessment & Plan: Patient noted to have significant bilateral lower extremity edema. Unclear cause at this time. Will evaluate for heart failure given patient's cardiac history. We will also evaluate for DVT. Plan: Follow-up echo Follow-up bilateral lower extremity ultrasound Prophylactic Lovenox for now (8) Hyperkalemia Status: Acute Assessment & Plan: Hyperkalemia 6 noted on labs in the ED. No EKG changes related to this. Plan: Will order repeat CMP after fluid resuscitation (9) Hyponatremia Status: Acute Assessment & Plan: Hyponatremia of 122. Unclear etiology at this time however may be secondary to septic shock. Will follow-up repeat CMP. (10) Fall Status: Acute Assessment & Plan: Status post fall a couple days ago. Pelvic, forearm and chest x-rays negative. Plan: Ordering right lower extremity x-ray to evaluate for fracture Qualifiers: Qualified Codes: W19.XXXA - Unspecified fall, initial encounter (11) Hypertension Status: Chronic Assessment & Plan: Hold home antihypertensives at this time due to septic shock picture Qualifiers: Qualified Codes: I10 - Essential (primary) hypertension (12) Colostomy care Status: Chronic Assessment & Plan: Secondary to hernia repair with bowel resection completed on 10/08/[address] to [facility]. Patient has a colostomy in place. Continue routine care. (13) Coronary artery disease Status: Chronic Assessment & Plan: Status post stenting in the LAD. Unclear when this procedure was completed. Qualifiers: Qualified Codes: I25.10 - Atherosclerotic heart disease of [place] coronary artery without angina pectoris DARRELL IRVIN MD 08/03/23 1313: Home Medications Allergies Coded Allergies: propoxyphene HCl (Unverified Allergy, Unknown, 03/30/11) KDT-Odcsfs-Hxxyru Hx Family Medical History Family History: Arthritis 19 MOTHER G8 SISTER Cardiovascular disease 19 FATHER 19 MOTHER G8 BROTHER (ENLARGED HEART, PASSED 48 YOUNGER BROTHER HEART MURMUR) Diabetes mellitus 19 MOTHER G8 SISTER Hypertension 19 FATHER 19 MOTHER Myocardial infarction Supervisory-Addendum Brief Supervisory Addendum I personally performed the pérez portions of the visit, discussed case with resident and concur with resident documentation of history, physical exam, assessment and treatment plan unless otherwise noted. MEENU CASTILLO MD, RESIDENT Aug 02, 2023 11:01 DARRELL IRVIN MD Aug 03, 2023 13:13
[2023-08-02] MEDS ORDERED: VANCOMYCIN INJECTION 750 MG in NS (IVPB) 250 ML 250 ML IV SCH (11:15)
[2023-08-02] MEDS ORDERED: VANCOMYCIN 1500MG/300ML PREMIX IV ONE (11:30)
[2023-08-02 11:40] LABS: ABG BASE EXCESS -10.1 MMOL/L (-2.5-2.5); ABG OXYGEN SATURATION 73 % (94-100); ABG PCO2 59 MMHG (35-45); ABG PO2 47 MMHG (79-93); ABG TCO2 21.4 MMOL/L (21.0-31.0)
[2023-08-02 11:41] LABS: ABG PH 7.13 (7.37-7.43)
[2023-08-02 12:07] LABS: HEMOGLOBIN 12.4 g/dL (11.5-16.0)
[2023-08-02 12:08] LABS: POTASSIUM 4.9 MMOL/L (3.6-5.0)
[2023-08-02 12:09] LABS: CALCIUM 6.9 MG/DL (8.5-10.1)
[2023-08-02 12:14] LABS: CREATININE SERUM 2.07 MG/DL (0.60-1.30)
[2023-08-02 13:44] VITALS: BP 111/35
--- NOTE | 2023-08-02 14:10 | Diagnostic Imaging Report ---
PROCEDURE: CT chest, abdomen, and pelvis without contrast. TECHNIQUE: Multiple contiguous axial images were obtained through the chest, abdomen, and pelvis without the use of intravenous contrast. Auto Exposure Controls were utilized during the CT exam to meet ALARA standards for radiation dose reduction. INDICATION: Fall, weakness. CHEST: There is extensive body wall edema in the chest asymmetric to the right involving the right breast infra-axilla, partially visualized right upper extremity, and right greater than left soft tissue in the subcutaneous chest wall. There are large right and moderate left pleural effusions without findings of their loculation. The pleural fluid appears low in attenuation and homogenous in density. There is an ET tube in the mid thoracic trachea. An OG catheter goes to the gastric cardia. No visible thoracic fracture deformity. There is no pneumothorax. No pericardial collection. The heart size is mildly enlarged. There are coronary atherosclerotic vascular calcifications. The central line has its tip in the low SVC via the right chest wall port. The calcified aorta is nonaneurysmal. ABDOMEN/PELVIS: Comparison is made to an exam from 02/21/2016. There is diffuse body wall subcutaneous edema and abdominal wall muscular swelling, asymmetric greater right. This extends into the partially visualized upper thighs. There is only a trace amount of intraperitoneal fluid. The gallbladder is likely distended and positioned anterior to the right hepatic lobe. No bile duct dilatation. There is no hydronephrosis. There is a right upper quadrant ostomy and likely chronic midline surgical abdominal wall defect with some mild bulging of bowel content. There is a true hernia in the left inguinal region with a small knuckle of unobstructed small bowel without inflammation within the hernia sac. There is no free gas. There are degenerative changes to the bony structures but no acute fracture. There is an old appearing T11 superior endplate compression deformity. No intra or retroperitoneal hemorrhage suspected. No bowel obstruction. No acute fluid collection or abscess. The urinary bladder is catheterized. There is no abnormal fecal loading. IMPRESSION: 1. Diffuse body wall swelling and edema, asymmetric greater right. No visible acute thoracic, abdominal, or pelvic fracture. 2. Large right and moderate left pleural effusions showing no complexity. There is passive atelectasis of the lower lobes. There is no pneumothorax or mediastinal or pericardial fluid. 3. The abdominal/pelvic portion shows prior surgery and small volume free fluid. A left inguinal hernia is nonobstructive. Extensive body wall swelling, subcutaneous edema, and muscular thickening. No findings of intra or retroperitoneal hemorrhage. There is no abscess or acute fluid collection. Prior surgery. No suspected malignancy. Dictated by: Dictated on workstation # [id number]
[2023-08-02] MEDS ORDERED: NS IV 500 ML 500 ML IV PRN ×2 (14:15→19:45)
[2023-08-02] MEDS ORDERED: ENOXAPARIN 40 MG/0.4 ML SYRINGE SC SCH (14:15)
[2023-08-02] MEDS ORDERED: PHARMACY TO DOSE IV SCH (14:15)
--- NOTE | 2023-08-02 14:36 | Tele-ICU Progress Note ---
Subjective Date Seen by a Provider: Aug 02, 2023 Time Seen by a Provider: 14:36 Subjective/Events-last exam (Tele-ICU Physician , consultation as per request of PCP Service provided via interactive audio and video telecommunications E-CARE system to a patient admitted to ICU bed in [facility]. Available chart/ vitals / labs / Images reviewed H&P is from ER notes Patient's information available about PMH, Shx, Fhx allergy reviewed inEMR. ROS as per chart and RN report Now in ICU,intubated sedated Video assessment done using teleICU camera, rest of exam as per RN Discussed with RN. VENT SETTINGS and ABG reviewed NOT CANDIDATE for SBTreviewed possible contraindications including Cardiovascular Stability /Sedation Score / FI02/PEEP / ABG / CXR/ secretions Sedation, discussed with RN, RASS on fent 50 versed 2 Hospital course: 08/02- INTUBATED , LEVO , R IJ line , ALEX , acidosis, cellulitis A/PAcute hypoxia and hyper carbic resp failure - multifactorial ( effusion , - INtubated 08/02 AC 20 - 450 -100% +10 ( PAP 29 Shock - septic , ? 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 - CT abd - No intra or retroperitoneal hemorrhage, + edema asymmetric R> L Large RIGHT effusion - hemothorax is less likely with stable Hb and low density on CT Hb not low - most likely need thoracentesis h/o CAD - H/o MARY of the LAD in Aug 2010 - trop neg abg S/p bowel resection for Perforated abdominal viscus with retroperitoneal leak - with colostomy in place 2016 as per ER MD discussion with family -- NO CPR Lines : right IJ 08/02 , (Central Line Necessity Reviewed) Snell: + OG: Nutrition: npo Analgesia: Anxiety/ delirium VTE Prophylaxis: postpone today Stress Ulcer Prophylaxis: ppi Plans in collaboration with bedside consultants and IM MDs. Discussed with RN to reach out if any questions or concerns A total of 40 minutes of critical care time was devoted to this patient today, required to treat and/or prevent further deterioration of critical care condition ( as above ) . I am remotely monitoring this patient from another state. I am unable to do the bedside exam, and history/physical and pertinent information is taken from other notes in the computer and bedside staff. . Sepsis Event Evaluation Height, Weight, BMI Height: 5'0.00" Weight: 136lbs. 0.0oz. 61.388631uf; 26.6 BMI Method:Stated Focused Exam Lactate Level 08/02/23 03:15: Lactic Acid Level 1.77 Time of Focused Exam: 05:30 Exam Exam Patient acknowledged, consented, and participated in this virtual visit which was conducted using real time audio/video Vital Signs Date Time Temp Pulse Resp B/P (MAP) Pulse Ox O2 Delivery O2 Flow Rate FiO2 08/02/23 13:58 75 08/02/23 13:48 35.3 80 19 106/84 98 Mechanical Ventilator 08/02/23 13:44 77 20 95 100 08/02/23 10:19 78 110/26 08/02/23 10:18 85 13 110/26 08/02/23 09:33 14 70 08/02/23 06:49 133 14 100 100 08/02/23 06:27 171 08/02/23 06:27 171 08/02/23 06:01 180 08/02/23 02:55 Nasal Cannula 4.00 08/02/23 02:51 36.0 126 18 91/62 (72) 87 Nasal Cannula 4.00 I & O 08/02/23 06:59 Intake Total 1100 ml Balance 1100 ml Height & Weight Height: 5'0.00" Weight: 136lbs. 0.0oz. 61.698877dn; 26.6 BMI Method:Stated General Appearance: Other Respiratory: No Accessory Muscle Use, Other (diminshed throughout) Cardiovascular: Irregularly Irregular, Tachycardia Capillary Refill: Greater Than 3 Seconds Peripheral Pulses: 1+ Radial Pulses (R), 1+ Radial Pulses (L) Gastrointestinal: normal bowel sounds, non tender, soft, other (Colostomy in right lower quadrant draining stool) Results Lab Laboratory Tests 08/02/23 03:15 08/02/23 07:42 08/02/23 11:55 Assessment/Plan Assessment/Plan 1 ANGELINA HERNANDEZ MD Aug 02, 2023 14:36
[2023-08-02] MEDS ORDERED: ALBUMIN 25% 25 GM/100 ML 50 ML IV ONE (14:45)
[2023-08-02] MEDS: NOREPINEPHRINE 8 MG/250 ML 250 ML IV SCH ×2 (14:47→16:49)
[2023-08-02] MEDS ORDERED: ENOXAPARIN 30 MG/0.3 ML SYRINGE SC SCH ×2 (15:00→19:30)
--- NOTE | 2023-08-02 15:01 | Wound Care Assessment ---
Wound Care Assessment Date Seen by Provider: Aug 02, 2023 Time Seen by Provider: 14:52 Chief Complaint Extensive R LE bullae with underlying wound R upper extremity wound posterior forearm HPI Opal Alicia is an 83yoF with past medical history of HTN, HLD, CAD s/p stent who was admitted for multiple medical issues including sepsis with hypotension requiring pressors, acute hypercapnic respiratory failure requiring intubation, elevated creatinine, electrolyte abnormalities, and recent fall. Wound care was consulted due to the presence of R lower extremity ruptured bullae. This blistering extends from the lateral portion of her R foot to lateral portion of R calf. Large amounts of serous drainage present. She also has a full thickness wound to the posterior forearm adjacent to lateral epicondyle. All blistering appears to be related to anasarca. Etiology is unclear though she does have numerous electorlyte abnormalities, renal failure and concern for CHF with new atrial fibrillation and bilateral pleural effusions. I do suspect a pressure component as well with associated ecchymosis. It is possible this is fall related but family is uncertain as to history. Patient is currently intubated and sedated so cannot answer any questions.Chart review reveals she was complaining of significant pain to R lower and upper extremities in the ED. Currently on Vanc and Zosyn per primary team. She remains on pressor support for hypotension. LE ultrasound pending to evaluate for presence of underlying DVT. Past Medical History: Admits Heart Disease; Denies Diabetes Type II, Denies Lupas Other Social Hx unable to obtain social history, patient is intubated and sedated Review of Systems Other systems Patient is intubated and sedated, unable to obtain full ROS Exam Vital Signs Date Time Temp Pulse Resp B/P (MAP) Pulse Ox O2 Delivery O2 Flow Rate FiO2 08/02/23 14:47 91/54 08/02/23 14:37 34.4 20 98 Mechanical Ventilator 100.00 08/02/23 13:58 75 08/02/23 13:44 100 Capillary Refill : Less Than 3 Seconds General Appearance: obese, other (intubated) Neck: other (central line in place) Cardiovascular: no JVD, irregularly irregular Respiratory: other (invasive ventilation, O2 sats appropriate on exam) Gastrointestinal: soft, other (colostomy present) Extremities: pedal edema, swelling (anasarca) Neurologic/Psychiatric: other (sedated, unable to answer questions at this time) Skin: cool, ecchymosis, other (large area of bullae present to R lateral calf and foot, large serous drainage) Skin Problem Location: upper extremities, lower extremities Skin Character: bullous, drainage, erythema, swelling, warm Right Lateral calf and lateral foot 7.8x7.1x0.1 cm, difficult to measure wound edges due to large area of bullae no tunneling or undermining partial thickness large amount of serous drainage margin is flat small necrotic slough Right forearm 1.8x2.1x0.1cm no tunneling or undermining full thickness without underlying structures margin is flat granulation is small necrotic is large and slough cluster of 2 Results Laboratory Tests 08/02/23 03:15: White Blood Count 6.5, Red Blood Count 5.01, Hemoglobin 12.8, Hematocrit 42, Mean Corpuscular Volume 83, Mean Corpuscular Hemoglobin 26, Mean Corpuscular Hemoglobin Concent 31L, Red Cell Distribution Width 15.6H, Platelet Count 189, Mean Platelet Volume 12.3H, Immature Granulocyte % (Auto) 0, Neutrophils (%) (Auto) 92H, Lymphocytes (%) (Auto) 3L, Monocytes (%) (Auto) 3, Eosinophils (%) (Auto) 1, Basophils (%) (Auto) 1, Neutrophils # (Auto) 6.0, Lymphocytes # (Auto) 0.2L, Monocytes # (Auto) 0.2, Eosinophils # (Auto) 0.0, Basophils # (Auto) 0.1, Immature Granulocyte # (Auto) 0.0, Neutrophils % (Manual) 32, Lymphocytes % (Manual) 7, Monocytes % (Manual) 4, Eosinophils % (Manual) 1, Metamyelocytes % 18, Myelocytes % 2, Band Neutrophils 36, Nucleated Red Blood Cells 1, Polychrom juanis SLIGHT, Poikilocytosis SLIGHT, Anisocytosis SLIGHT, [place] Cells MARKED, Elliptocytes SLIGHT, Acanthocytes SLIGHT, Prothrombin Time 16.2H, INR Comment 1.2, Activated Partial Thromboplast Time 40H, Sodium Level 122*L, Potassium Level 6.0H, Chloride Level 91L, Carbon Dioxide Level 22, Anion Gap 9, Blood Urea Nitrogen 34H, Creatinine 2.32H, Estimat Glomerular Filtration Rate 20, BUN/Creatinine Ratio 15, Glucose Level 63L, Lactic Acid Level 1.77, Calcium Lev el 8.2L, Corrected Calcium 9.2, Total Bilirubin 1.1H, Aspartate Amino Transf (AST/SGOT) 39H, Alanine Aminotransferase (ALT/SGPT) 23, Alkaline Phosphatase 63, Total Creatine Kinase 233H, Total Protein 5.5L, Albumin 2.7L 08/02/23 03:30: Urine Color ORANGE, Urine Clarity CLEAR, Urine pH 5.5, Urine Specific [place] 1.025H, Urine Protein 3+H, Urine Glucose (UA) NEGATIVE, Urine Ketones TRACEH, Urine Nitrite NEGATIVE, Urine Bilirubin 2+H, Urine Urobilinogen 1.0, Urine Leukocyte Esterase NEGATIVE, Urine RBC (Auto) NEGATIVE, Urine RBC NONE, Urine WBC 0-2, Urine Squamous Epithelial Cells 2-5, Urine Crystals PRESENTH, Urine Amorphous Sediment LARGE LUIGI URATESH, Urine Bacteria FEWH, Urine Casts PRESENT, Urine Hyaline Casts 2-5H, Urine Granular Casts 0-2H, Urine Mucus NEGATIVE, Urine Culture Indicated CULTURE PENDING 08/02/23 04:07: Arterial Blood pH 7.24*L, Arterial Blood Partial Pressure CO2 48H, Arterial Blood Partial Pressure O2 112H, Arterial Blood HCO3 21L, Arterial Blood Total CO2 22.1, Arterial Blood Oxygen Saturation 100, Arterial Blood Base Excess -6.9L , Blood Gas Ventilator Setting NO, Blood Gas Inspired Oxygen 5L 08/02/23 06:19: Glucometer 98 08/02/23 07:04: Arterial Blood pH 7.27*L, Arterial Blood Partial Pressure CO2 42, Arterial Blood Partial Pressure O2 125H, Arterial Blood HCO3 19L, Arterial Blood Total CO2 20.6L, Arterial Blood Oxygen Saturation 99, Arterial Blood Base Excess -7.3L, Blood Gas Ventilator Setting , Blood Gas Inspired Oxygen 08/02/23 07:42: Sodium Level 125*L, Potassium Level 4.9, Chloride Level 96L, Carbon Dioxide Level 19L, Anion Gap 10, Blood Urea Nitrogen 31H, Creatinine 2.08H, Estimat Glomerular Filtration Rate 23, BUN/Creatinine Ratio 15, Glucose Level 93, Calcium Level 7.2L 08/02/23 09:49: Glucometer 75 08/02/23 10:48: Glucometer 67L 08/02/23 11:30: Arterial Blood pH 7.13*L, Arterial Blood Partial Pressure CO2 59H, Arterial Blood Partial Pressure O2 47L, Arterial Blood HCO3 20L, Arterial Blood Total CO2 21.4, Arterial Blood Oxygen Saturation 73L, Arterial Blood Base Excess -10.1L, Blood Gas Ventilator Setting , Blood Gas Inspired Oxygen 08/02/23 11:55: Hemoglobin 12.4, Hematocrit 41, Sodium Level 125*L, Potassium Level 4.9, Chloride Level 97L, Carbon Dioxide Level 18L, Anion Gap 10, Blood Urea Nitrogen 32H, Creatinine 2.07H, Estimat Glomerular Filtration Rate 23, BUN/Creatinine Ratio 15, Glucose Level 155H, Calcium Level 6.9L, Troponin I 0.041H, Thyroid Stimulating Hormone (TSH) 4.45 Assessment/Plan/Dx 1. open bullae with underlying wound to RLE, possible cellulitis 2. Right forearm wound 3. Acute hypercapnic respiratory failure requiring intubation 4. Sepsis with shock requiring pressor support 5. Atrial fibrillation with RVR 6. Elevated troponin 7. ALEX- probable, last creatinine in our records from 2015 8. Hyponatremia 9. Hyperkalemia 1. Primary dressing silver alginate, cover with ABD pad and roller gauze, change daily 2. Silver alginate, bordered foam, change daily 3. Per primary team, ICU consulted 4. Per primary team, ICU consulted 5. Per primary, on diltiazem drip 6. per primary team, cards consulted 7-9. IV fluids per primary team, Supervisory-Addendum Brief Verification & Attestation Participated in pt care: history, MDM, physical, procedure Personally performed: exam, history, MDM, supervision of care Care discussed with: Medical Student Procedures: n/a Results interpretation: Verified all documentation DENNY LASSITER Aug 02, 2023 15:01 NAVARRO BLAND MD Aug 02, 2023 16:06
[2023-08-02] MEDS: PANTOPRAZOLE INJECTION 40 MG VIAL IV SCH (15:06)
--- NOTE | 2023-08-02 15:43 | History & Physicial-Cardiolgy ---
HPI-Cardiology Cardiology Consultation: Date of Consultation 08/02/23 Date of Admission 08/02/2023 Attending Physician [facility] Admitting Physician Admitting Physician: Trina Cross MD Attending Physician: Trina Cross MD Consulting Physician KARAN PÉREZ MD HPI: Time Seen by a Provider: 15:38 Chief Complaint: Patient was brought because of severe weakness, shortness of breath, fever, pain in the her lower extremities Patient was brought to emergency room for the above complaints. Reportedly patient fell several days ago but refused to go to the hospital. Today she feels pain in the legs became severe and patient was brought to emergency room. She was found to be hypotensive, reviewed the rapid atrial fibrillation, with bilateral lower extremities cellulitis. Patient was intubated in the emergency room because of respiratory failure. Patient was also hypotensive and was started on Levophed. Few temperature was also low. Patient was transferred to ICU for treatment of possible septic shock. According to the patient's grandson she did not have any heart problems before Review of Systems-Cardiology Review of Systems Constitutional: chills, fever, malaise, tiredness Eyes: no symptoms reported Ears/Nose/Throat: no symptoms reported Respiratory: shortness of breath Cardiovascular: irregular heart rate, palpitations Gastrointestinal: no symptoms reported Genitourinary: no symptoms reported : No Musculoskeletal: other (Bilateral leg edema with swelling) Skin: lesions (On both legs, erythema), ulcerations on exposed areas Psychiatric/Neurological: no symptoms reported Hematologic: no symptoms reported MSO-Atarea-Nvxloq Hx Patient Social History Alcohol Use?: No Past Medical History PMH As described under Assessment. Family Medical History Family History: Arthritis 19 MOTHER G8 SISTER Cardiovascular disease 19 FATHER 19 MOTHER G8 BROTHER (ENLARGED HEART, PASSED 48 YOUNGER BROTHER HEART MURMUR) Diabetes mellitus 19 MOTHER G8 SISTER Hypertension 19 FATHER 19 MOTHER Myocardial infarction Allergies and Home Medications Allergies Coded Allergies: propoxyphene HCl (Unverified Allergy, Unknown, 03/30/11) Patient Home Medication List Home Medication List Reviewed: Yes Aspirin (Aspirin EC) 81 Mg Tablet.dr, 81 MG PO HS, (Reported) Entered as Reported by: MONTSE ZHU on 02/11/16 1315 Hydrocodone Bit/Acetaminophen (Lortab 5 Mg Tablet) 1 Each Tablet, 1 EACH PO Q6H PRN for PAIN, (Reported) Entered as Reported by: HIEU RANGEL on 07/13/16 1517 Metoprolol Succinate (Metoprolol Succinate) 50 Mg Tab.er.24h, 50 MG PO DAILY, (Reported) Entered as Reported by: MONTSE ZHU on 02/11/16 1302 Omeprazole (Omeprazole) 20 Mg Capsule.dr, 20 MG PO BID, (Reported) Entered as Reported by: MONTSE ZHU on 02/11/16 1315 Ondansetron (Zofran Odt) 8 Mg Tab.rapdis, 8 MG PO Q8H PRN for NAUSEA/VOMITING, (Reported) Entered as Reported by: HIEU RANGEL on 07/13/16 1517 Physical Exam-Cardiology Physical Exam Vital Signs/I&O 08/02/23 08/02/23 08/02/23 08/02/23 06:01 06:27 06:27 06:49 Pulse 180 171 171 133 Resp 14 Pulse Ox 100 FiO2 100 08/02/23 08/02/23 08/02/23 08/02/23 09:33 10:18 10:19 13:44 Pulse 85 78 77 Resp 14 13 20 B/P (MAP) 110/26 110/26 Pulse Ox 95 FiO2 70 100 08/02/23 08/02/23 08/02/23 08/02/23 13:48 13:58 14:37 14:47 Temp 35.3 34.4 Pulse 80 75 Resp 19 20 B/P (MAP) 106/84 100/60 (73) 91/54 Pulse Ox 98 98 O2 Delivery Mechanical Ventilator Mechanical Ventilator O2 Flow Rate 100.00 08/02/23 14:52 Pulse 79 B/P (MAP) 122/84 Capillary Refill : Less Than 3 Seconds Constitutional: appears stated age Neck: full range of motion, supple Respiratory: respiratory distress Cardiovascular: irregularly irregular, tachycardia Gastrointestinal: soft, round Rectal: deferred Extremities: swelling, abrasion (Right leg is covered by dressing) Neurologic/Psychiatric: no motor/sensory deficits Skin: cyanosis, mottled Lymphatic: no adenopathy Data Review Labs Laboratory Tests 08/02/23 03:15: White Blood Count 6.5, Red Blood Count 5.01, Hemoglobin 12.8, Hematocrit 42, Mean Corpuscular Volume 83, Mean Corpuscular Hemoglobin 26, Mean Corpuscular Hemoglobin Concent 31L, Red Cell Distribution Width 15.6H, Platelet Count 189, Mean Platelet Volume 12.3H, Immature Granulocyte % (Auto) 0, Neutrophils (%) (Auto) 92H, Lymphocytes (%) (Auto) 3L, Monocytes (%) (Auto) 3, Eosinophils (%) (Auto) 1, Basophils (%) (Auto) 1, Neutrophils # (Auto) 6.0, Lymphocytes # (Auto) 0.2L, Monocytes # (Auto) 0.2, Eosinophils # (Auto) 0.0, Basophils # (Auto) 0.1, Immature Granulocyte # (Auto) 0.0, Neutrophils % (Manual) 32, Lymphocytes % (Manual) 7, Monocytes % (Manual) 4, Eosinophils % (Manual) 1, Metamyelocytes % 18, Myelocytes % 2, Band Neutrophils 36, Nucleated Red Blood Cells 1, Polychromasia SLIGHT, Poikilocytosis SLIGHT, Anisocytosis SLIGHT, [place] Cells MARKED, Elliptocytes SLIGHT, Acanthocytes SLIGHT, Prothrombin Time 16.2H, INR Comment 1.2, Activated Partial Thromboplast Time 40H, Sodium Level 122*L, Potassium Level 6.0H, Chloride Level 91L, Carbon Dioxide Level 22, Anion Gap 9, Blood Urea Nitrogen 34H, Creatinine 2.32H, Estimat Glomerular Filtration Rate 20, BUN/Creatinine Ratio 15, Glucose Level 63L, Lactic Acid Level 1.77, Calcium Level 8.2L, Corrected Calcium 9.2, Total Bilirubin 1.1H, Aspartate Amino Transf (AST/SGOT) 39H, Alanine Aminotransferase (ALT/SGPT) 23, Alkaline Phosphatase 63, Total Creatine Kinase 233H, Total Protein 5.5L, Albumin 2.7L 08/02/23 03:30: Urine Color ORANGE, Urine Clarity CLEAR, Urine pH 5.5, Urine Specific [place] 1.025H, Urine Protein 3+H, Urine Glucose (UA) NEGATIVE, Urine Ketones TRACEH, Urine Nitrite NEGATIVE, Urine Bilirubin 2+H, Urine Urobilinogen 1.0, Urine Leukocyte Esterase NEGATIVE, Urine RBC (Auto) NEGATIVE, Urine RBC NONE, Urine WBC 0-2, Urine Squamous Epithelial Cells 2-5, Urine Crystals PRESENTH, Urine Amorphous Sediment LARGE LUIGI URATESH, Urine Bacteria FEWH, Urine Casts PRESENT, Urine Hyaline Casts 2-5H, Urine Granular Casts 0-2H, Urine Mucus NEGATIVE, Urine Culture Indicated CULTURE PENDING 08/02/23 04:07: Arterial Blood pH 7.24*L, Arterial Blood Partial Pressure CO2 48H, Arterial Blood Partial Pressure O2 112H, Arterial Blood HCO3 21L, Arterial Blood Total CO2 22.1, Arterial Blood Oxygen Saturation 100, Arterial Blood Base Excess -6.9L , Blood Gas Ventilator Setting NO, Blood Gas Inspired Oxygen 5L 08/02/23 06:19: Glucometer 98 08/02/23 07:04: Arterial Blood pH 7.27*L, Arterial Blood Partial Pressure CO2 42, Arterial Blood Partial Pressure O2 125H, Arterial Blood HCO3 19L, Arterial Blood Total CO2 20.6L, Arterial Blood Oxygen Saturation 99, Arterial Blood Base Excess -7.3L, Blood Gas Ventilator Setting , Blood Gas Inspired Oxygen 08/02/23 07:42: Sodium Level 125*L, Potassium Level 4.9, Chloride Level 96L, Carbon Dioxide Level 19L, Anion Gap 10, Blood Urea Nitrogen 31H, Creatinine 2.08H, Estimat Glomerular Filtration Rate 23, BUN/Creatinine Ratio 15, Glucose Level 93, Calcium Level 7.2L 08/02/23 09:49: Glucometer 75 08/02/23 10:48: Glucometer 67L 08/02/23 11:30: Arterial Blood pH 7.13*L, Arterial Blood Partial Pressure CO2 59H, Arterial Blood Partial Pressure O2 47L, Arterial Blood HCO3 20L, Arterial Blood Total CO2 21.4, Arterial Blood Oxygen Saturation 73L, Arterial Blood Base Excess -10.1L, Blood Gas Ventilator Setting , Blood Gas Inspired Oxygen 08/02/23 11:55: Hemoglobin 12.4, Hematocrit 41, Sodium Level 125*L, Potassium Level 4.9, Chloride Level 97L, Carbon Dioxide Level 18L, Anion Gap 10, Blood Urea Nitrogen 32H, Creatinine 2.07H, Estimat Glomerular Filtration Rate 23, BUN/Creatinine Ratio 15, Glucose Level 155H, Calcium Level 6.9L, Troponin I 0.041H, Thyroid Stimulating Hormone (TSH) 4.45 Radiology CHEST 1 VIEW, AP/PA ONLY EXAM: CHEST 1 VIEW, AP/PA ONLY INDICATION: Central line placement. COMPARISON: 08/02/2023. FINDINGS: New right IJ CVC tip lower SVC. Persistent dense consolidation in the right lung base. Cardiomegaly. Prominent pulmonary vascularity. Large right pleural effusion. No pneumothorax. IMPRESSION: 1. New right IJ CVC tip lower SVC. 2. Remainder stable including cardiomegaly, large right pleural effusion and pulmonary vascular congestion. ECG Impression ECG Initial ECG Impression Date: Aug 02, 2023 Initial ECG Impression Time: 15:46 Comment Atrial fibrillation with rapid rate, Low voltage, nonspecific ST-T changes A/P-Cardiology Assessment/Admission Diagnosis Rapid atrial fibrillation. Elevated troponin. Septic shock. Respiratory failure. Bilateral lower extremity cellulitis Admission Status: Inpatient Order (span 2 midnights) Reason for Inpatient Admission: Critical condition requiring ICU stay Plan Continue pressors, antibiotics, ventilator support. Heart rate is presently controlled, patient is on Cardizem drip. Try to calm down holding the Cardizem drip dose with a plan to wean it off. If the heart rate will increase we will try to use digoxin. We will check echo. Follow troponin. Consider to add Lovenox Condition is critical. KARAN PÉREZ MD Aug 02, 2023 15:42
[2023-08-02] MEDS ORDERED: HYPOCHLOROUS ACID/NaCl WOUND SOLN 250 ML IR SCH (16:15)
[2023-08-02 16:25] LABS: ABG BASE EXCESS -10.5 MMOL/L (-2.5-2.5); ABG OXYGEN SATURATION 100 % (94-100); ABG PCO2 20 MMHG (35-45); ABG PH 7.39 (7.37-7.43); ABG PO2 233 MMHG (79-93); ABG TCO2 12.7 MMOL/L (21.0-31.0)
[2023-08-02 16:29] LABS: INSPIRED O2 100%; VENTILATOR YES
[2023-08-02] MEDS ORDERED: SODIUM BICARB 8.4% 50 MEQ/50 ML (ABBOTT) SYR IV NR (16:30)
[2023-08-02] MEDS: NS IV 1000 ML 1,000 ML IV SCH (16:34)
--- NOTE | 2023-08-02 16:50 | Diagnostic Imaging Report ---
INDICATION: Right lower leg pain. FINDINGS: AP and lateral views of the right tibia-fibula show no fracture, dislocation or other acute abnormalities. IMPRESSION: Negative right tibia-fibula. Dictated by: Dictated on workstation # [id number]
--- NOTE | 2023-08-02 17:06 | Diagnostic Imaging Report ---
PROCEDURE: US Venous Lower Ext Liam. TECHNIQUE: Multiple real-time grayscale images were obtained over the lower extremities in various projections, bilaterally. Additional duplex Doppler and color Doppler images were also obtained. INDICATION: Septic shock. FINDINGS: There is no evidence of right or left lower extremity DVT. Both lower extremity deep venous systems demonstrate normal compressibility with normal response to augmentation and Valsalva. Lower superficial femoral veins bilaterally were not well visualized, however. There is no fluid collection or mass. IMPRESSION: No evidence of right or left lower extremity DVT. Dictated by: Dictated on workstation # [id number]
[2023-08-02] MEDS ORDERED: SODIUM BICARBONATE 8.4% VIAL 150 MEQ in WATER FOR INJECTION, STERILE 1,000 ML IV SCH (17:15)
[2023-08-02 18:09] LABS: POTASSIUM 4.8 MMOL/L (3.6-5.0)
[2023-08-02 18:11] LABS: CALCIUM 6.5 MG/DL (8.5-10.1)
[2023-08-02 18:15] LABS: CREATININE SERUM 1.93 MG/DL (0.60-1.30)
[2023-08-02 18:18] LABS: MAGNESIUM 1.2 MG/DL (1.6-2.4)
[2023-08-02] MEDS: PIPERACILLIN/Tazobactam 4.5 GM in NS (IVPB) 100 ML 100 ML IV SCH (18:31)
[2023-08-02] MEDS: NOREPINEPHRINE 16 MG/250 ML DRIP IV SCH ×4 (18:31→22:25)
[2023-08-02] MEDS: DOPamine DRIP PRE-MIX 250 ML IV SCH (18:45)
[2023-08-02] MEDS ORDERED: DIGOXIN INJECTION 0.25 MG/ML 2 ML AMPULE IV PRN (19:00)
[2023-08-02] MEDS ORDERED: ENOXAPARIN 40 MG/0.4 ML SYRINGE SQ SCH (19:45)
[2023-08-02 20:12] VITALS: BP 118/32
[2023-08-02] MEDS ORDERED: NS IV 500 ML 500 ML IV SCH (22:30)
[2023-08-02 22:31] VITALS: BP 110/40
[2023-08-02] MEDS ORDERED: SODIUM BICARBONATE 8.4% SYR 150 MEQ in D5W 1,000 ML IV SOLUTION 1,000 ML IV SCH (23:45)
[2023-08-03] MEDS ORDERED: DIGOXIN INJECTION 0.25 MG/ML 2 ML AMPULE IV ONE (00:15)
[2023-08-03] MEDS: NS IV 1000 ML 1,000 ML IV SCH ×2 (00:20→11:45)
[2023-08-03] MEDS ORDERED: NORMAL SALINE (EXCEL) 250 ML 250 ML ONE (00:46)
[2023-08-03] MEDS ORDERED: AMIODARONE (Pyxis Kit Only) DRIP 450 MG/9 ML VIAL IV ONE (00:47)
[2023-08-03] MEDS: AMIODARONE FOR DRIP 450 MG in NORMAL SALINE (EXCEL) 250 ML 250 ML IV SCH ×2 (01:19→08:45)
[2023-08-03] MEDS: PIPERACILLIN/Tazobactam 4.5 GM in NS (IVPB) 100 ML 100 ML IV SCH ×2 (01:46→09:53)
[2023-08-03] MEDS: NOREPINEPHRINE 16 MG/250 ML DRIP IV SCH ×10 (01:48→15:03)
[2023-08-03] MEDS ORDERED: NS IV 500 ML 500 ML IV SCH (02:15)
[2023-08-03 03:00] VITALS: BP 127/66
[2023-08-03 04:25] LABS: ALBUMIN 2.3 GM/DL (3.2-4.5); POTASSIUM 5.1 MMOL/L (3.6-5.0)
[2023-08-03 04:26] LABS: CALCIUM 6.5 MG/DL (8.5-10.1)
[2023-08-03] MEDS: D5 NS 1,000 ML IV SOLN 1,000 ML IV SCH ×2 (04:26→11:45)
[2023-08-03 04:27] LABS: TOTAL PROTEIN 4.3 GM/DL (6.4-8.2)
[2023-08-03 04:29] LABS: BILIRUBIN,TOTAL 1.4 MG/DL (0.1-1.0)
[2023-08-03 04:31] LABS: CREATININE SERUM 2.16 MG/DL (0.60-1.30); PHOSPHORUS 2.5 MG/DL (2.3-4.7)
[2023-08-03 04:33] LABS: ABG BASE EXCESS -6.6 MMOL/L (-2.5-2.5); ABG OXYGEN SATURATION 100 % (94-100); ABG PCO2 22 MMHG (35-45); ABG PH 7.45 (7.37-7.43); ABG PO2 149 MMHG (79-93)
[2023-08-03 04:33] LABS: MAGNESIUM 1.2 MG/DL (1.6-2.4)
[2023-08-03 04:36] LABS: INSPIRED O2 40%; VENTILATOR YES
[2023-08-03] MEDS ORDERED: POTASSIUM CHLORIDE 20 MEQ TABLET PO SCH ×2 (06:00)
[2023-08-03] MEDS ORDERED: POTASSIUM CL 10MEQ/50ML IVPB 50 ML IV SCH ×2 (06:00)
[2023-08-03] MEDS ORDERED: MAGNESIUM 1 GM/100 ML IVPB 100 ML IV SCH ×2 (06:00)
[2023-08-03] MEDS: dilTIAZem DRIP PRE-MIX 125 ML IV SCH ×2 (06:15→15:01)
[2023-08-03 06:36] LABS: BASOPHILS # (AUTO) 0.1 10^3/uL (0.0-0.1); BASOPHILS % (AUTO) 1 % (0-10); EOSINOPHILS # (AUTO) 0.2 10^3/uL (0.0-0.3); EOSINOPHILS % (AUTO) 4 % (0-10); HEMATOCRIT 40 % (35-52); HEMOGLOBIN 13.6 g/dL (11.5-16.0); LYMPHOCYTES # (AUTO) 0.5 10^3/uL (1.0-4.0); LYMPHOCYTES % (AUTO) 7 % (12-44); MEAN CORPUSCULAR HEMOGLOBIN 26 pg (25-34); MEAN CORPUSCULAR HGB CONC 34 g/dL (32-36); MEAN CORPUSCULAR VOLUME 76 fL (80-99); MEAN PLATELET VOLUME 12.3 fL (9.0-12.2); MONOCYTES # (AUTO) 0.7 10^3/uL (0.0-1.0); MONOCYTES % (AUTO) 10 % (0-12); NEUTROPHILS # (AUTO) 4.9 10^3/uL (1.8-7.8); NEUTROPHILS % (AUTO) 77 % (42-75); PLATELET COUNT 97 10^3/uL (130-400); WHITE BLOOD COUNT 6.4 10^3/uL (4.3-11.0)
[2023-08-03] MEDS: D5W IV SCH ×2 (06:59→15:01)
[2023-08-03] MEDS: SODIUM BICARBONATE IV SCH ×2 (06:59→15:01)
--- NOTE | 2023-08-03 08:58 | Diagnostic Imaging Report ---
INDICATION: Shock, renal failure. Frontal chest obtained at 05:18 a.m. compared to 08/02/2023. ET tube tip overlies mid trachea. NG tube tip is near the left hemidiaphragm and should be advanced. Right IJ catheter tip overlies low SVC. There is right basilar infiltrate versus atelectasis as well as a large right pleural effusion, similar to the prior study. Left lung is grossly clear. IMPRESSION: Life support lines as above. There is cardiomegaly. There is no change in right basilar infiltrate versus atelectasis with right pleural effusion. Note the NG tube tip is near the hemidiaphragm and should be advanced. Dictated by: Dictated on workstation # [id number]
[2023-08-03 09:23] VITALS: BP 127/66
[2023-08-03] MEDS: PANTOPRAZOLE INJECTION 40 MG VIAL IV SCH (09:52)
[2023-08-03] MEDS ORDERED: BUMETANIDE INJ 1 MG/4 ML VIAL IV NR (10:00)
[2023-08-03] MEDS ORDERED: ALBUMIN 25% 25 GM/100 ML 100 ML IV ONE (10:00)
--- NOTE | 2023-08-03 10:59 | Tele-ICU Progress Note ---
Subjective Date Seen by a Provider: Aug 03, 2023 Time Seen by a Provider: 10:57 Subjective/Events-last exam (Tele-ICU Physician , Progress Note ) Service provided via interactive audio and video telecommunications E-CARE system to a patient admitted to ICU bed in [facility]. Patient is seen today due to persistent need of ICU care Available chart/ vitals / labs / Images reviewed Video assessment done using teleICU camera, rest of exam as per RN Discussed with RN Events overnight : Afebrile hemodynamically stable Respiratory - 40 I/O = 60 ml Drips: amio , cardizem 15 , bicarb 75 Pressors- levo 0.94 VENT SETTINGS and ABG reviewed NOT CANDIDATE for SBTreviewed possible contraindications including Cardiovascular Stability /Sedation Score / FI02/PEEP / ABG / CXR/ secretions Sedation, discussed with RN, RASS on fent 25 vers 2 Hospital course: 08/02- [id number]/21 AC 20 - 450 -100% +7 ( PAP 29 , LEVO , R IJ line , ALEX , acidosis, cellulitis 08/03 AC 16 - 450 -100% +7 ( PAP 29 . fent 25 vers 2. UO 60 ml , bicarb gtt - dose of bumex A/P IF LOW EF AND NOT RECOVERING RENAL FUNCTION - PROGNOSIS IS VERY POOR WILL AWAIT ECHO REPORT AND ASESS URINE OUTPUT AFTER DIURETICS - NEED TO DISCUSS WITH FAMILY PROGNOSIS / TX / EXPECTATIONS Acute hypoxic and hypercarbic resp failure - multifactorial ( effusion , infection - INtubated 08/02 AC 20 - 450 -100% +7 ( PAP 29 - adjust vent Shock - septic , ? cardiogenic component with RVR ( echo results pending - levo @ 0.97 -s/p IVF resuscitation of 4 L NS Sepsis, bacteremia BETA HEMOLYTIC [employer] A - cellulitis RLE , possible UTI -Vanco and Zosyn ALEX with Hyperkalemia - with shock , CPK 230 - ANURIC - 800 ml for 24 h UO - despite agressive hydration - cont bicarn gtt and try diuretic x1 after albumin - CT - NO hydronephrosis - follow K and Tx if needed A fib RVR - new on presentation - started on Cardizem gtt 08/02 - amio gtt 08/02, dig - ECHO pending Hyponatremia - 122 on admission 08/02 - received IVF in ER - to repat q 4 h and follow - goal of 130 by 08/03 am - recheck AMOS and pain [employer] - in ER suspected RLE cellulitis - abx started - US LE to assess for DVT Thrombocytopenia - ? sepsis S?p fall at home 2 d [employer] - etiology ? 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 Discussed with RN to reach out if any questions or concerns A total of 40 minutes of critical care time was devoted to this patient today, required to treat and/or prevent further deterioration of critical care condition ( as above ) . I am remotely monitoring this patient from another state. I am unable to do the bedside exam, and history/physical and pertinent information is taken from other notes in the computer and bedside staff. . Sepsis Event Evaluation Height, Weight, BMI Height: 5'0.00" Weight: 136lbs. 0.0oz. [id number]; 31.25 BMI Method:Stated Focused Exam Lactate Level 08/02/23 03:15: Lactic Acid Level 1.77 Time of Focused Exam: 05:30 Exam Exam Patient acknowledged, consented, and participated in this virtual visit which was conducted using real time audio/video Vital Signs Date Time Temp Pulse Resp B/P (MAP) Pulse Ox O2 Delivery O2 Flow Rate FiO2 08/03/23 09:23 122 20 100 30 08/03/23 08:44 118 127/66 08/03/23 08:00 100 Mechanical Ventilator 40 08/03/23 08:00 40 08/03/23 07:56 37.2 08/03/23 06:00 37.7 118 20 100 Mechanical Ventilator 50.00 08/03/23 05:16 107 127/66 08/03/23 05:00 37.7 107 20 100 Mechanical Ventilator 50.00 08/03/23 04:00 80 08/03/23 04:00 37.8 128 20 100 Mechanical Ventilator 50.00 08/03/23 04:00 100 Mechanical Ventilator 50 08/03/23 04:00 36.6 08/03/23 03:00 38.1 133 20 100 Mechanical Ventilator 60.00 08/03/23 03:00 122 20 100 50 08/03/23 02:00 38.1 125 20 100 Mechanical Ventilator 60.00 08/03/23 01:48 133 116/66 08/03/23 01:00 127 08/03/23 01:00 37.9 133 20 100 Mechanical Ventilator 60.00 08/03/23 00:00 100 Mechanical Ventilator 60 08/03/23 00:00 37.5 120 20 116/66 (93) 100 Mechanical Ventilator 60.00 08/02/23 23:49 80 08/02/23 23:47 36.5 08/02/23 23:00 36.8 120 20 116/69 (78) 100 Mechanical Ventilator 60.00 08/02/23 22:45 36.6 128 20 101/79 (84) 100 Mechanical Ventilator 60.00 08/02/23 22:31 115 20 100 60 08/02/23 22:30 36.5 144 20 100 Mechanical Ventilator 60.00 08/02/23 22:25 120 118/32 08/02/23 22:20 36.4 113 20 100 Mechanical Ventilator 60.00 08/02/23 22:15 36.4 125 20 100 Mechanical Ventilator 80.00 08/02/23 22:00 36.3 116 20 100 Mechanical Ventilator 80.00 08/02/23 21:45 36.1 123 20 100 Mechanical Ventilator 80.00 08/02/23 21:30 36.0 112 20 100 Mechanical Ventilator 80.00 08/02/23 21:15 36.0 20 100 Mechanical Ventilator 80.00 Automatic Cuff 08/02/23 21:00 35.9 105 20 110/40 (45) 100 Mechanical Ventilator 80.00 08/02/23 20:45 35.8 105 20 97/53 (60) 98 Mechanical Ventilator 80.00 08/02/23 20:34 35.8 115 20 118/92 (103) 100 Mechanical Ventilator 80.00 08/02/23 20:30 35.7 105 20 64/39 (42) 100 Mechanical Ventilator 80.00 11/21/23 20:15 35.6 103 20 118/32 (83) 96 Mechanical Ventilator 80.00 08/02/23 20:12 120 20 100 80 08/02/23 20:00 100 Mechanical Ventilator 80 08/02/23 20:00 35.6 112 20 115/89 (100) 100 Mechanical Ventilator 80.00 08/02/23 20:00 80 08/02/23 19:45 35.4 104 20 125/86 (94) 100 Mechanical Ventilator 80.00 08/02/23 19:30 35.3 96 20 116/70 (76) 100 Mechanical Ventilator 80.00 08/02/23 19:15 35.2 98 20 111/68 (88) 100 Mechanical Ventilator 80.00 08/02/23 19:10 35.1 100 20 103/61 (82) 100 Mechanical Ventilator 80.00 08/02/23 19:04 35.1 100 20 88/65 (69) 100 Mechanical Ventilator 80.00 08/02/23 19:00 104 08/02/23 19:00 35.1 104 20 91 Mechanical Ventilator 80.00 08/02/23 18:31 98/77 08/02/23 18:00 85 20 96/58 (71) 100 Mechanical Ventilator 80.00 08/02/23 18:00 80 08/02/23 17:31 100 Mechanical Ventilator 80.00 08/02/23 17:00 88 19 115/68 (84) 100 Mechanical Ventilator 90.00 08/02/23 16:49 116/63 08/02/23 16:44 Mechanical Ventilator 90.00 08/02/23 16:00 87 16 97/77 (84) 99 Mechanical Ventilator 100.00 08/02/23 16:00 Mechanical Ventilator 100 08/02/23 15:44 34.3 08/02/23 15:00 100 08/02/23 14:52 79 122/84 08/02/23 14:47 91/54 08/02/23 14:37 34.4 20 100/60 (73) 98 Mechanical Ventilator 100.00 08/02/23 14:00 Mechanical Ventilator 100 08/02/23 13:58 75 08/02/23 13:48 35.3 80 19 106/84 98 Mechanical Ventilator 08/02/23 13:44 77 20 95 100 I & O 08/03/23 06:59 Intake Total 4900 ml Output Total 86 ml Balance 4814 ml Height & Weight Height: 5'0.00" Weight: 136lbs. 0.0oz. [id number]; 31.25 BMI Method:Stated General Appearance: Other Respiratory: No Accessory Muscle Use, Other (diminshed throughout) Cardiovascular: Irregularly Irregular, Tachycardia Capillary Refill: Less Than 3 Seconds Peripheral Pulses: 1+ Radial Pulses (R), 1+ Radial Pulses (L) Gastrointestinal: soft, other (colostomy present) Results Lab Laboratory Tests 08/02/23 03:15 08/02/23 07:42 08/02/23 11:55 08/02/23 17:45 08/03/23 04:05 Assessment/Plan Assessment/Plan 1 ANGELINA HERNANDEZ MD Aug 03, 2023 10:59
[2023-08-03 11:07] LABS: POTASSIUM 4.9 MMOL/L (3.6-5.0)
[2023-08-03 11:08] LABS: CALCIUM 6.4 MG/DL (8.5-10.1)
--- NOTE | 2023-08-03 11:10 | Progress Note - Hospitalist ---
Subjective HPI/CC On Admission Date Seen by Provider: Aug 03, 2023 Time Seen by Provider: 11:00 Subjective/Events-last exam Patient in multisystem organ failure Updated daughter Will perform terminal extubation and comfort care once family arrives Focused Exam Lactate Level 08/02/23 03:15: Lactic Acid Level 1.77 Time of Focused Exam: 05:30 Objective Exam Vital Signs Vital Signs Date Time Temp Pulse Resp B/P (MAP) Pulse Ox O2 Delivery O2 Flow Rate FiO2 08/03/23 16:27 95 126/55 08/03/23 16:09 36.4 08/03/23 16:00 40 08/03/23 16:00 100 Mechanical Ventilator 08/03/23 16:00 16 50.00 Capillary Refill : Less Than 3 Seconds General Appearance: Other ( on ventilator and sedated) Results/Procedures Lab Laboratory Tests 08/03/23 04:05 08/03/23 10:20 Patient resulted labs reviewed. Assessment/Plan Assessment and Plan Assess & Plan/Chief Complaint Assessment: Multisystem organ failure Respiratory failure requiring intubation Advanced age Acute kidney injury Atrial fibrillation Plan: Comfort care protocol once family arrives SANDY ELLIS DO Aug 03, 2023 11:10
[2023-08-03 11:12] LABS: CREATININE SERUM 2.17 MG/DL (0.60-1.30)
[2023-08-03] MEDS ORDERED: VANCOMYCIN 1 GM/NS 250 ML IVPB IV SCH ×2 (12:00)
[2023-08-03 14:19] VITALS: BP 126/55
--- NOTE | 2023-08-03 15:14 | Cardiology Progress Note ---
Subjective Date Seen by Provider: Aug 03, 2023 Time Seen by Provider: 11:05 Subjective/Events-last exam Patient remains intubated, sedated. On Levophed, with a Blood pressure at 120/70. In atrial fibrillation with controlled rate, on Cardizem drip. Attempt to control rate with amiodarone was unsuccessful. Minimal urine output. Exam Vital Signs Vital Signs Date Time Temp Pulse Resp B/P (MAP) Pulse Ox O2 Delivery O2 Flow Rate FiO2 08/03/23 15:03 85 126/55 08/03/23 15:00 35.5 16 99 Mechanical Ventilator 50.00 08/03/23 14:19 30 Physical Exam Intubated sedated. Neck supple, no JVD. Lungs: Mechanical sounds. Heart: S1-S2, irregular rhythm, distant sounds. Abdomen soft. Extremities: With signs of cellulitis bilaterally Labs Laboratory Tests Test 08/02/23 16:19 08/02/23 16:23 08/02/23 17:41 08/02/23 17:45 Range/Units Arterial Blood pH 7.39 7.37-7.43 Arterial Blood Partial Pressure CO2 20 L 35-45 MMHG Arterial Blood Partial Pressure O2 233 H 79-93 MMHG Arterial Blood HCO3 12 *L 23-27 MMOL/L Arterial Blood Total CO2 12.7 L 21.0-31.0 MMOL/L Arterial Blood Oxygen Saturation 100 94-100 % Arterial Blood Base Excess -10.5 L -2.5-2.5 MMOL/L Blood Gas Ventilator Setting YES Blood Gas Inspired Oxygen 100% Troponin I 0.080 H <0.028 NG/ML Glucometer 182 H 70-110 MG/DL Sodium Level 125 *L 135-145 MMOL/L Potassium Level 4.8 3.6-5.0 MMOL/L Chloride Level 98 98-107 MMOL/L Carbon Dioxide Level 16 L 21-32 MMOL/L Anion Gap 11 5-14 MMOL/L Blood Urea Nitrogen 30 H 7-18 MG/DL Creatinine 1.93 H 0.60-1.30 MG/DL Estimat Glomerular Filtration Rate 26 BUN/Creatinine Ratio 16 Glucose Level 216 H 70-105 MG/DL Calcium Level 6.5 L 8.5-10.1 MG/DL Magnesium Level 1.2 L 1.6-2.4 MG/DL Test 08/02/23 23:20 08/03/23 01:51 08/03/23 04:05 08/03/23 04:06 Range/Units Glucometer 66 L 102 70-110 MG/DL White Blood Count 6.4 4.3-11.0 10^3/uL Red Blood Count 5.30 H 3.80-5.11 10^6/uL Hemoglobin 13.6 11.5-16.0 g/dL Hematocrit 40 35-52 % Mean Corpuscular Volume 76 L 80-99 fL Mean Corpuscular Hemoglobin 26 25-34 pg Mean Corpuscular Hemoglobin Concent 34 32-36 g/dL Red Cell Distribution Width 15.0 H 10.0-14.5 % Platelet Count 97 L 130-400 10^3/uL Mean Platelet Volume 12.3 H 9.0-12.2 fL Immature Granulocyte % (Auto) 1 % Neutrophils (%) (Auto) 77 H 42-75 % Lymphocytes (%) (Auto) 7 L 12-44 % Monocytes (%) (Auto) 10 0-12 % Eosinophils (%) (Auto) 4 0-10 % Basophils (%) (Auto) 1 0-10 % Neutrophils # (Auto) 4.9 1.8-7.8 10^3/uL Lymphocytes # (Auto) 0.5 L 1.0-4.0 10^3/uL Monocytes # (Auto) 0.7 0.0-1.0 10^3/uL Eosinophils # (Auto) 0.2 0.0-0.3 10^3/uL Basophils # (Auto) 0.1 0.0-0.1 10^3/uL Immature Granulocyte # (Auto) 0.1 0.0-0.1 10^3/uL Percent Immature Platelet Fraction 7.5 0.0-7.6 % Sodium Level 125 *L 135-145 MMOL/L Potassium Level 5.1 H 3.6-5.0 MMOL/L Chloride Level 100 98-107 MMOL/L Carbon Dioxide Level 16 L 21-32 MMOL/L Anion Gap 9 5-14 MMOL/L Blood Urea Nitrogen 31 H 7-18 MG/DL Creatinine 2.16 H 0.60-1.30 MG/DL Estimat Glomerular Filtration Rate 22 BUN/Creatinine Ratio 14 Glucose Level 99 70-105 MG/DL Calcium Level 6.5 L 8.5-10.1 MG/DL Corrected Calcium 7.9 L 8.5-10.1 MG/DL Phosphorus Level 2.5 2.3-4.7 MG/DL Magnesium Level 1.2 L 1.6-2.4 MG/DL Total Bilirubin 1.4 H 0.1-1.0 MG/DL Aspartate Amino Transf (AST/SGOT) 47 H 5-34 U/L Alanine Aminotransferase (ALT/SGPT) 44 0-55 U/L Alkaline Phosphatase 43 40-136 U/L Total Protein 4.3 L 6.4-8.2 GM/DL Albumin 2.3 L 3.2-4.5 GM/DL Arterial Blood pH 7.45 H 7.37-7.43 Arterial Blood Partial Pressure CO2 22 L 35-45 MMHG Arterial Blood Partial Pressure O2 149 H 79-93 MMHG Arterial Blood HCO3 15 *L 23-27 MMOL/L Arterial Blood Total CO2 16.0 L 21.0-31.0 MMOL/L Arterial Blood Oxygen Saturation 100 94-100 % Arterial Blood Base Excess -6.6 L -2.5-2.5 MMOL/L Blood Gas Ventilator Setting YES Blood Gas Inspired Oxygen 40% Test 08/03/23 10:20 08/03/23 11:58 Range/Units Sodium Level 125 *L 135-145 MMOL/L Potassium Level 4.9 3.6-5.0 MMOL/L Chloride Level 99 98-107 MMOL/L Carbon Dioxide Level 15 L 21-32 MMOL/L Anion Gap 11 5-14 MMOL/L Blood Urea Nitrogen 32 H 7-18 MG/DL Creatinine 2.17 H 0.60-1.30 MG/DL Estimat Glomerular Filtration Rate 22 BUN/Creatinine Ratio 15 Glucose Level 101 70-105 MG/DL Calcium Level 6.4 L 8.5-10.1 MG/DL Glucometer 82 70-110 MG/DL Radiology Echo showed severe LV systolic dysfunction with ejection fraction of less than 20%, moderately severe mitral regurgitation A/P-Cardiology Admission Diagnosis Septic shock. Respiratory failure. Atrial fibrillation with rapid rate. Severe LV systolic dysfunction. Bilateral cellulitis Assessment/Plan Will discuss with the family the goals of care. Continue ventilator and pressure support. Continue digoxin and Cardizem drip for heart rate control. Continue antibiotics Condition is critical KARAN PÉREZ MD Aug 03, 2023 15:14
[2023-08-03 16:27] VITALS: BP 126/55
[2023-08-03] MEDS: DOPamine DRIP PRE-MIX 250 ML IV SCH (16:27)
[2023-08-03] MEDS ORDERED: ARTIFICIAL TEARS Ophth solution 0.4 ML UNIT DOSE OU PRN (16:45)
[2023-08-03] MEDS ORDERED: PROMETHAZINE INJ 25 MG/ML VIAL IVP PRN (16:45)
[2023-08-03] MEDS ORDERED: morphine INJ 4 MG/ML 1 ML (VIAL/SYRINGE) IV PRN (16:45)
[2023-08-03] MEDS ORDERED: ONDANSETRON INJECTION 4 MG/2 ML (SDV) IVP PRN (16:45)
[2023-08-03] MEDS ORDERED: SCOPOLAMINE 1.5 MG PATCH TOP SCH (16:45)
[2023-08-03] MEDS ORDERED: ATROPINE 1% OPHTHALMIC SOLN 2 ML SL PRN (16:45)
[2023-08-03] MEDS ORDERED: GLYCOPYRROLATE INJ 0.2 MG/ML 2 ML VIAL IV PRN (16:45)
[2023-08-03] MEDS ORDERED: SALIVA SUBSTITUTE 60 ML SPRAY MM PRN (16:45)
[2023-08-03] MEDS ORDERED: ACETAMINOPHEN 650 MG SUPPOSITORY PR PRN (16:45)
[2023-08-03] MEDS ORDERED: LORazepam 1 MG TABLET SL PRN (16:45)
[2023-08-03] MEDS ORDERED: RT-Ipratropium/Albuterol NEB 3 ML VIAL INH PRN (16:45)
[2023-08-03] MEDS ORDERED: BISACODYL 10 MG SUPPOSITORY PR PRN (16:45)
[2023-08-03] MEDS ORDERED: SALIVA SUBSTITUTE 236 ML SPRAY MM PRN (17:15)
[2023-08-04] MEDS ORDERED: TROUGH ORDER-PHARMACY XX NR (11:00)
--- NOTE | 2023-08-04 11:45 | Discharge Summary ---
Discharge Summary Hospital Course Was the Problem List Reviewed?: Yes Problems/Dx: (1) Septic shock Status: Acute (2) Acute hypercapnic respiratory failure Status: Acute (3) Cellulitis Status: Acute Qualifiers: Qualified Codes: L03.115 - Cellulitis of right lower limb (4) Atrial fibrillation with RVR Status: Acute Hospital Course Date of Admission: Aug 02, 2023 at 13:51 Admission Diagnosis : Family Physician/Provider: [facility] Date of Discharge: 08/04/23 Discharge Diagnosis: [ ] Hospital Course: Short course after she was admitted from ER in septic shock from cellulitis and required intubation and remained in ICU. IVF and IV abx maintained but multi- system organ failure occurred and the decision to terminally extubate and place on comfort care after meeting with daughter. Patient at 1943. Labs and Pending Lab Test: Laboratory Tests 08/03/23 11:58: Glucometer 82 08/03/23 17:51: Glucometer 88 Microbiology 08/02/23 MRSA Screen - Final, Complete MRSA not isolated 08/02/23 Blood Culture - Preliminary, Resulted Strep, Beta Hemolytic Group A 08/02/23 Urine Culture - Final, Complete NO GROWTH Home Meds Active No Active Prescriptions or Reported Medications Assessment/Pt Instructions Discharge Planning: <30 minutes discharge planning Discharge Physical Examination Vital Signs Vital Signs Date Time Temp Pulse Resp B/P (MAP) Pulse Ox O2 Delivery O2 Flow Rate FiO2 08/03/23 16:27 95 126/55 08/03/23 16:09 36.4 08/03/23 16:00 40 08/03/23 16:00 100 Mechanical Ventilator 08/03/23 16:00 16 50.00 Allergies: Coded Allergies: propoxyphene HCl (Unverified Allergy, Unknown, 03/30/11) Discharge Summary Date of Admission Aug 02, 2023 at 13:51 Date of Discharge Aug 03, 2023 at 19:44 Comfort Measures/ End of Life Care: Comfort Measures Discharge Diagnosis Assessment: Multisystem organ failure Respiratory failure requiring intubation Advanced age Acute kidney injury Atrial fibrillation Plan: Comfort care protocol once family arrives SANDY ELLIS DO Aug 04, 2023 11:45
[2023-08-06] MEDS ORDERED: SCOPOLAMINE PATCH REMOVAL TP SCH (16:44)
== END 2023-08-03 19:44 | disposition expired | DRG 871 ==
LOC: EDUNIT# 02:51 → ER 02:53 → ICU 13:51
PROVIDERS: ADMIT Family Medicine; ATTEND Internal Medicine
PROC: 02HV33Z Insertion of Infusion Device into Superior Vena Cava, Percutaneous Approach (ICD-10-PCS; principal; 2023-08-02)
PROC: 5A1945Z Respiratory Ventilation, 24-96 Consecutive Hours (ICD-10-PCS; 2023-08-02)
PROC: 0BH17EZ Insertion of Endotracheal Airway into Trachea, Via Natural or Artificial Opening (ICD-10-PCS; 2023-08-02)
DX: A41.9 Sepsis, unspecified organism (principal); J96.01 Acute respiratory failure with hypoxia; J96.02 Acute respiratory failure with hypercapnia; R65.21 Severe sepsis with septic shock; L03.115 Cellulitis of right lower limb; N17.9 Acute kidney failure, unspecified; L03.116 Cellulitis of left lower limb; E87.1 Hypo-osmolality and hyponatremia; I48.91 Unspecified atrial fibrillation; Z66 Do not resuscitate; Z51.5 Encounter for palliative care; E87.5 Hyperkalemia; D69.6 Thrombocytopenia, unspecified; I25.10 Atherosclerotic heart disease of native coronary artery without angina pectoris; I10 Essential (primary) hypertension; E78.5 Hyperlipidemia, unspecified; Z95.5 Presence of coronary angioplasty implant and graft; Z93.3 Colostomy status; Z79.82 Long term (current) use of aspirin; Z79.899 Other long term (current) drug therapy; M19.90 Unspecified osteoarthritis, unspecified site; M81.0 Age-related osteoporosis without current pathological fracture
CPT/HCPCS: 31500; 36415; 36556; 36600; 51702; 71045; 71250; 72170; 73090; 73590; 74176; 80048; 80053; 81000; 82550; 82805; 82947; 83605; 83735; 84100; 84443; 84484; 85007; 85014; 85018; 85025; 85027; 85610; 85730; 87040; 87077; 87081; 87088; 87186; 93005; 93306; 93970; 94002; 94003; 99291; 99292